=== PATIENT | male | born 1955 | race Caucasian/White ===

== ENCOUNTER 2019-04-27 21:35 | Inpatient (IN) ==
[2019-04-27] MEDS ORDERED: 0.9 % Sodium Chloride 1,000 ML IVC SCH (22:00)
[2019-04-27] MEDS ORDERED: 0.9 % Sodium Chloride 1,000 ML IVC ONE (22:02)
[2019-04-27 22:03] LABS: INR 1.6; Prothrombin Time 18.1 Seconds (9.4-12.1)
[2019-04-27 22:06] LABS: Activated Partial Thrombo Time 35.2 Seconds (26.0-36.0)
[2019-04-27 22:21] LABS: Alanine Aminotransferase 38 Units/L (7-52); Albumin 2.9 g/dL (3.5-5.7); Albumin/Globulin Ratio 0.7 (1.1-2.2); Alkaline Phosphatase 146 Units/L (34-104); Aspartate Amino Transferase 102 Units/L (13-39); BUN/Creatinine Ratio 10 (6-26); Bilirubin,Total 2.3 mg/dL (0.3-1.0); Blood Urea Nitrogen 5 mg/dL (8-23); Calcium 8.3 mg/dL (8.6-10.3); Carbon Dioxide 27 mEq/L (23-29); Chloride 96 mEq/L (98-107); Globulin 4.2 g/dL (2.4-3.5); Glucose 91 mg/dL (70-105); Osmolality,Calculated 269 (280-300); Potassium 4.1 mEq/L (3.5-5.1); Sodium 131 mEq/L (136-145); Total Protein 7.1 g/dL (6.4-8.9); eGFR For African Americans > 60 (> 60); eGFR For Non-African Americans > 60 (> 60)
[2019-04-27 22:29] LABS: Basophils % 1.1 %; Eosinophils # 0.1 K/mcL (0.0-0.6); Eosinophils % 1.8 %; Hematocrit 37.2 % (37.5-50.1); Hemoglobin 13.4 g/dL (12.9-16.9); Immature Granulocytes % 0.4 % (0-4); Lymphocytes # 1.1 K/mcL (0.6-4.6); Lymphocytes % 37.9 %; Mean Corpuscular Hemoglobin 35.2 pg (28.0-33.3); Mean Corpuscular Volume 97.6 fL (83.0-100.0); Monocytes # 0.3 K/mcL (0.0-1.3); Monocytes % 12.3 %; Neutrophils # 1.3 K/mcL (1.6-8.9); Red Blood Count 3.81 M/mcL (4.19-5.50); Segmented Neutrophils % 46.5 %; White Blood Count 2.8 K/mcL (4.3-11.1)
[2019-04-27 22:30] LABS: Platelet Count 77 K/mcL (140-400)
[2019-04-27] MEDS ORDERED: *HR* LORazepam 2 MG/ML VIAL IVP ONE (22:59)
[2019-04-27 23:04] LABS: Bilirubin,Urine Negative (Negative); Blood,Urine Negative (Negative); Clarity,Urine Cloudy (Clear); Color,Urine Yellow (Yellow); Glucose,Urine (UA) Normal (Normal); Ketones,Urine Negative (Negative); Leukocyte Esterase,Urine Negative (Negative); Nitrite,Urine Negative (Negative); PH,Urine 6.5 pH Units (5.0-8.0); Protein,Urine Negative (Neg-Trace); Specific Gravity,Urine 1.014 (1.010-1.025); Urobilinogen,Urine Normal (Normal)
[2019-04-27 23:07] LABS: Bacteria,Urine None Seen per hpf (None-Few); Hyaline Casts,Urine None Seen per lpf (None-Few); RBC,Urine 0-3 per hpf (0-3); Squamous Epithelial Cell,Urine Moderate per lpf (None-Few); WBC,Urine 0-3 per hpf (0-3)
[2019-04-28] MEDS ORDERED: Naloxone 0.4 MG/ML INJ IVP PRN (00:06)
[2019-04-28] MEDS ORDERED: Ondansetron 4 MG/2 ML VIAL IVP PRN (00:06)
[2019-04-28] MEDS ORDERED: Octreotide 400 MCG in 0.9 % Sodium Chloride 100 ML IVC SCH (00:15)
[2019-04-28] MEDS ORDERED: 0.9 % Sodium Chloride 1,000 ML IVC SCH (00:15)
[2019-04-28] MEDS ORDERED: Octreotide 50 MCG/ML INJ IVP ONE (00:18)
[2019-04-28] MEDS ORDERED: *HR* LORazepam 2 MG/ML VIAL IVP PRN ×2 (00:20)
[2019-04-28] MEDS ORDERED: cefTRIAXone 1,000 MG in Water for inj. (sterile) 10 ML IVPB SCH (01:00)
[2019-04-28] MEDS ORDERED: Pantoprazole 40 MG VIAL IVP SCH ×2 (01:45→06:00)
[2019-04-28 02:04] LABS: Eosinophils % 0.7 %; Hematocrit 36.2 % (37.5-50.1); Hemoglobin 13.2 g/dL (12.9-16.9); Immature Granulocytes % 0.2 % (0-4); Immature Platelets 3.2 % (1.1-6.1); Lymphocytes # 1.5 K/mcL (0.6-4.6); Lymphocytes % 36.9 %; Mean Corpuscular HGB Conc 36.5 g/dL (31.6-35.5); Mean Corpuscular Hemoglobin 35.1 pg (28.0-33.3); Mean Corpuscular Volume 96.3 fL (83.0-100.0); Mean Platelet Volume 9.9 fL (9.4-12.4); Monocytes # 0.6 K/mcL (0.0-1.3); Monocytes % 13.7 %; Red Blood Count 3.76 M/mcL (4.19-5.50); Segmented Neutrophils % 47.5 %; White Blood Count 4.1 K/mcL (4.3-11.1)
[2019-04-28 02:05] LABS: Platelet Count 77 K/mcL (140-400)
[2019-04-28 02:18] LABS: Alanine Aminotransferase 36 Units/L (7-52); Albumin 2.7 g/dL (3.5-5.7); Albumin/Globulin Ratio 0.7 (1.1-2.2); Alkaline Phosphatase 133 Units/L (34-104); Aspartate Amino Transferase 93 Units/L (13-39); BUN/Creatinine Ratio 16 (6-26); Bilirubin,Direct 0.8 mg/dL (0.0-0.2); Bilirubin,Indirect 1.4 mg/dL (0.0-1.0); Bilirubin,Total 2.2 mg/dL (0.3-1.0); Blood Urea Nitrogen 8 mg/dL (8-23); Carbon Dioxide 24 mEq/L (23-29); Chloride 100 mEq/L (98-107); Globulin 4.1 g/dL (2.4-3.5); Glucose 97 mg/dL (70-105); Osmolality,Calculated 274 (280-300); Potassium 4.2 mEq/L (3.5-5.1); Sodium 133 mEq/L (136-145); Total Protein 6.8 g/dL (6.4-8.9); eGFR For African Americans > 60 (> 60); eGFR For Non-African Americans > 60 (> 60)
[2019-04-28 05:28] VITALS: BP 115/71
== END 2019-04-28 06:00 | disposition critical access hospital (66) | DRG 432 ==
LOC: 2ANU 21:35 → EMEROOARM 21:35 → 2ANU 04-28 00:40
PROVIDERS: ADMIT Internal Medicine; ATTEND Internal Medicine

== ENCOUNTER 2019-08-31 18:47 | Inpatient (IN) ==
[2019-08-31 19:21] LABS: Basophils # 0.1 K/mcL (0.0-0.2); Basophils % 1.2 %; Eosinophils % 0.2 %; Hematocrit 30.3 % (37.5-50.1); Immature Granulocytes % 0.2 % (0-4); Lymphocytes # 1.1 K/mcL (0.6-4.6); Lymphocytes % 26.7 %; Mean Corpuscular Hemoglobin 29.9 pg (28.0-33.3); Mean Corpuscular Volume 90.7 fL (83.0-100.0); Mean Platelet Volume 8.5 fL (9.4-12.4); Monocytes # 0.6 K/mcL (0.0-1.3); Monocytes % 14.2 %; Neutrophils # 2.3 K/mcL (1.6-8.9); Platelet Count 117 K/mcL (140-400); Red Blood Count 3.34 M/mcL (4.19-5.50); Red Cell Distribution Width 18.2 % (11.5-14.5); Segmented Neutrophils % 57.5 %
[2019-08-31 19:24] LABS: INR 1.8; Prothrombin Time 20.1 Seconds (9.4-12.1)
[2019-08-31 19:42] LABS: Alanine Aminotransferase 21 Units/L (7-52); Albumin 2.2 g/dL (3.5-5.7); Albumin/Globulin Ratio 0.5 (1.1-2.2); Alkaline Phosphatase 127 Units/L (34-104); Aspartate Amino Transferase 58 Units/L (13-39); BUN/Creatinine Ratio 7 (6-26); Bilirubin,Direct 0.5 mg/dL (0.0-0.2); Bilirubin,Indirect 1.3 mg/dL (0.0-1.0); Bilirubin,Total 1.8 mg/dL (0.3-1.0); Blood Urea Nitrogen 4 mg/dL (8-23); Calcium 8.5 mg/dL (8.6-10.3); Carbon Dioxide 27 mEq/L (23-29); Chloride 95 mEq/L (98-107); Globulin 4.7 g/dL (2.4-3.5); Glucose 99 mg/dL (70-105); Osmolality,Calculated 263 (280-300); Potassium 3.4 mEq/L (3.5-5.1); Sodium 128 mEq/L (136-145); Total Protein 6.9 g/dL (6.4-8.9); Troponin I < 0.03 ng/mL (< 0.04); eGFR For African Americans > 60 (> 60); eGFR For Non-African Americans > 60 (> 60)
[2019-08-31] MEDS ORDERED: Furosemide 40 MG/4 ML VIAL IVP ONE (21:50)
[2019-08-31] MEDS ORDERED: Acetaminophen 325 MG TABLET PO PRN (22:58)
[2019-08-31] MEDS ORDERED: *HR* OxyCODONE Immed Rel 5 MG TABLET PO PRN (22:58)
[2019-08-31] MEDS ORDERED: Naloxone 0.4 MG/ML INJ IVP PRN (22:58)
[2019-08-31] MEDS ORDERED: *HR* LORazepam 2 MG/ML VIAL IVP PRN ×3 (23:05)
[2019-09-01] MEDS: Cefepime HCl 1,000 MG in Water for inj. (sterile) 10 ML IVP SCH ×3 (00:19→18:07)
[2019-09-01 02:43] LABS: Eosinophils # 0.2 K/mcL (0.0-0.6); Hematocrit 30.2 % (37.5-50.1); Immature Granulocytes % 0.3 % (0-4); Lymphocytes # 0.9 K/mcL (0.6-4.6); Lymphocytes % 24.4 %; Mean Corpuscular HGB Conc 33.1 g/dL (31.6-35.5); Mean Corpuscular Hemoglobin 29.9 pg (28.0-33.3); Mean Corpuscular Volume 90.4 fL (83.0-100.0); Mean Platelet Volume 8.3 fL (9.4-12.4); Monocytes # 0.5 K/mcL (0.0-1.3); Monocytes % 12.2 %; Neutrophils # 2.2 K/mcL (1.6-8.9); Platelet Count 115 K/mcL (140-400); Red Blood Count 3.34 M/mcL (4.19-5.50); Segmented Neutrophils % 56.1 %; White Blood Count 3.9 K/mcL (4.3-11.1)
[2019-09-01 02:51] LABS: INR 1.9; Prothrombin Time 21.7 Seconds (9.4-12.1)
[2019-09-01 03:06] LABS: BUN/Creatinine Ratio 10 (6-26); Blood Urea Nitrogen 5 mg/dL (8-23); Calcium 8.2 mg/dL (8.6-10.3); Carbon Dioxide 28 mEq/L (23-29); Chloride 96 mEq/L (98-107); Chol/HDL Ratio 6.2 (0-4.9); Cholesterol 68 mg/dL (< 200); Glucose 103 mg/dL (70-105); HDL Cholesterol 11 mg/dL (40-59); LDL Cholesterol,Calculated 47 mg/dL (0-99); Magnesium 1.1 mg/dL (1.6-2.6); Osmolality,Calculated 266 (280-300); Potassium 3.5 mEq/L (3.5-5.1); Sodium 129 mEq/L (136-145); Triglycerides 51 mg/dL (< 150); eGFR For African Americans > 60 (> 60); eGFR For Non-African Americans > 60 (> 60)
[2019-09-01] MEDS ORDERED: *HR* Heparin 5,000 UNIT/ML VIAL SQ SCH (06:00)
[2019-09-01] MEDS: *HR* Heparin 5,000 UNIT/ML VIAL SQ SCH ×2 (06:07→18:08)
[2019-09-01] MEDS ORDERED: Albumin 25% 25gram/100mL 25 GM/100 ML IV.SOLN IVPB ONE (08:00)
[2019-09-01] MEDS: Folic Acid 1 MG TABLET PO SCH (10:23)
[2019-09-01] MEDS: Vitamin B Complex/Vit C/Vit E 1 EACH TABLET PO SCH (10:23)
[2019-09-01] MEDS: Thiamine (B-1) 100 MG TABLET PO SCH (10:23)
[2019-09-01] MEDS: Furosemide 40 MG/4 ML VIAL IVP SCH ×2 (10:27→21:48)
[2019-09-01] MEDS: Thiamine (B-1) 100 MG, Folic Acid 1 MG, MVI, adult with vitamin K 10 ML in 0.9 % Sodi... IVPB SCH (18:08)
[2019-09-02] MEDS: Cefepime HCl 1,000 MG in Water for inj. (sterile) 10 ML IVP SCH ×2 (00:22→08:11)
[2019-09-02] MEDS: *HR* Heparin 5,000 UNIT/ML VIAL SQ SCH ×2 (05:17→18:16)
[2019-09-02 06:17] LABS: Immature Granulocytes % 0.3 % (0-4); Mean Corpuscular Volume 88.7 fL (83.0-100.0); Red Cell Distribution Width 17.9 % (11.5-14.5)
[2019-09-02 06:19] LABS: Basophils # 0.1 K/mcL (0.0-0.2); Basophils % 1.8 %; Eosinophils # 0.3 K/mcL (0.0-0.6); Eosinophils % 9.5 %; Hematocrit 25.9 % (37.5-50.1); Hemoglobin 8.8 g/dL (12.9-16.9); Immature Platelets 1.7 % (1.1-6.1); Lymphocytes # 1.3 K/mcL (0.6-4.6); Lymphocytes % 37.4 %; Mean Corpuscular Hemoglobin 30.1 pg (28.0-33.3); Mean Platelet Volume 8.8 fL (9.4-12.4); Monocytes # 0.4 K/mcL (0.0-1.3); Monocytes % 11.9 %; Neutrophils # 1.3 K/mcL (1.6-8.9); Platelet Count 101 K/mcL (140-400); Red Blood Count 2.92 M/mcL (4.19-5.50); Segmented Neutrophils % 39.1 %; White Blood Count 3.4 K/mcL (4.3-11.1)
[2019-09-02 06:52] LABS: Alanine Aminotransferase 15 Units/L (7-52); Albumin/Globulin Ratio 0.6 (1.1-2.2); Alkaline Phosphatase 91 Units/L (34-104); Aspartate Amino Transferase 38 Units/L (13-39); BUN/Creatinine Ratio 8 (6-26); Blood Urea Nitrogen 4 mg/dL (8-23); Calcium 7.8 mg/dL (8.6-10.3); Carbon Dioxide 32 mEq/L (23-29); Chloride 95 mEq/L (98-107); Globulin 3.6 g/dL (2.4-3.5); Glucose 97 mg/dL (70-105); Osmolality,Calculated 269 (280-300); Potassium 2.6 mEq/L (3.5-5.1); Sodium 131 mEq/L (136-145); Total Protein 5.6 g/dL (6.4-8.9); eGFR For African Americans > 60 (> 60); eGFR For Non-African Americans > 60 (> 60)
[2019-09-02 06:57] LABS: Anisocytosis 1+ (Not Present); Platelet Estimate Slight Decrease (Normal); Reactive Lymphocytes Present (Not Present)
[2019-09-02] MEDS: Potassium Chloride Elixir 20 MEQ/15 ML UDC PO SCH ×2 (08:09→20:15)
[2019-09-02] MEDS: Thiamine (B-1) 100 MG TABLET PO SCH (08:10)
[2019-09-02] MEDS: Folic Acid 1 MG TABLET PO SCH (08:10)
[2019-09-02] MEDS: Furosemide 40 MG/4 ML VIAL IVP SCH ×2 (08:10→20:15)
[2019-09-02] MEDS: Vitamin B Complex/Vit C/Vit E 1 EACH TABLET PO SCH (08:10)
[2019-09-02] MEDS: Albumin 25% 25gram/100mL 25 GM/100 ML IV.SOLN IVPB SCH ×2 (16:16→23:53)
[2019-09-02] MEDS ORDERED: Perflutren Lipid Microsphere 1.3 ML in 0.9 % Sodium Chloride 8.7 ML IVP ONE (18:12)
[2019-09-02] MEDS: Thiamine (B-1) 100 MG, Folic Acid 1 MG, MVI, adult with vitamin K 10 ML in 0.9 % Sodi... IVPB SCH (18:18)
[2019-09-02] MEDS: Cefepime HCl 2,000 MG in 0.9 % Sodium Chloride Mini Bag 100 ML IVPB SCH (20:16)
[2019-09-03] MEDS: *HR* Heparin 5,000 UNIT/ML VIAL SQ SCH (05:41)
[2019-09-03 06:04] LABS: Basophils % 1.3 %; Eosinophils # 0.3 K/mcL (0.0-0.6); Eosinophils % 10.9 %; Hematocrit 23.3 % (37.5-50.1); Immature Granulocytes % 0.3 % (0-4); Lymphocytes # 1.2 K/mcL (0.6-4.6); Lymphocytes % 39.4 %; Mean Corpuscular HGB Conc 34.3 g/dL (31.6-35.5); Mean Corpuscular Hemoglobin 30.4 pg (28.0-33.3); Mean Corpuscular Volume 88.6 fL (83.0-100.0); Mean Platelet Volume 9.6 fL (9.4-12.4); Monocytes # 0.4 K/mcL (0.0-1.3); Monocytes % 14.1 %; Neutrophils # 1.1 K/mcL (1.6-8.9); Red Blood Count 2.63 M/mcL (4.19-5.50); Red Cell Distribution Width 17.9 % (11.5-14.5); White Blood Count 3.1 K/mcL (4.3-11.1)
[2019-09-03 06:26] LABS: Hypochromasia Present (Not Present); Platelet Count 83 K/mcL (140-400); Platelet Estimate Slight Decrease (Normal); Target Cells 1+ (Not Present)
[2019-09-03 06:28] LABS: Alanine Aminotransferase 13 Units/L (7-52); Albumin 2.4 g/dL (3.5-5.7); Albumin/Globulin Ratio 0.8 (1.1-2.2); Alkaline Phosphatase 76 Units/L (34-104); Aspartate Amino Transferase 35 Units/L (13-39); BUN/Creatinine Ratio 6 (6-26); Bilirubin,Total 1.8 mg/dL (0.3-1.0); Blood Urea Nitrogen 3 mg/dL (8-23); Calcium 7.9 mg/dL (8.6-10.3); Carbon Dioxide 33 mEq/L (23-29); Chloride 95 mEq/L (98-107); Globulin 3.1 g/dL (2.4-3.5); Glucose 100 mg/dL (70-105); Osmolality,Calculated 271 (280-300); Potassium 2.4 mEq/L (3.5-5.1); Sodium 132 mEq/L (136-145); Total Protein 5.5 g/dL (6.4-8.9); eGFR For African Americans > 60 (> 60); eGFR For Non-African Americans > 60 (> 60)
[2019-09-03] MEDS: Cefepime HCl 2,000 MG in 0.9 % Sodium Chloride Mini Bag 100 ML IVPB SCH (08:02)
[2019-09-03] MEDS: Furosemide 40 MG/4 ML VIAL IVP SCH ×2 (08:04→23:13)
[2019-09-03] MEDS: Folic Acid 1 MG TABLET PO SCH (08:04)
[2019-09-03] MEDS: Vitamin B Complex/Vit C/Vit E 1 EACH TABLET PO SCH (08:04)
[2019-09-03] MEDS: Potassium Chloride Elixir 20 MEQ/15 ML UDC PO SCH ×2 (08:05→23:12)
[2019-09-03] MEDS: Thiamine (B-1) 100 MG TABLET PO SCH (08:07)
[2019-09-03] MEDS ORDERED: Potassium Chloride 40 MEQ, Lidocaine 1% 2 ML in 0.9 % Sodium Chloride 500 ML IVPB ONE (08:13)
[2019-09-03] MEDS: Albumin 25% 25gram/100mL 25 GM/100 ML IV.SOLN IVPB SCH (08:30)
[2019-09-03 09:01] LABS: Magnesium 1.1 mg/dL (1.6-2.6)
[2019-09-03] MEDS ORDERED: Aminoglycoside Consult 1 EACH MC ONE (09:13)
[2019-09-03] MEDS: cephALEXin 500 MG CAPSULE PO SCH ×2 (17:23→23:13)
[2019-09-04 05:04] LABS: Basophils % 1.3 %
[2019-09-04 05:06] LABS: Eosinophils # 0.3 K/mcL (0.0-0.6); Eosinophils % 9.4 %; Hematocrit 24.1 % (37.5-50.1); Immature Platelets 2.1 % (1.1-6.1); Lymphocytes # 1.2 K/mcL (0.6-4.6); Lymphocytes % 38.4 %; Mean Corpuscular HGB Conc 33.2 g/dL (31.6-35.5); Mean Corpuscular Hemoglobin 29.4 pg (28.0-33.3); Mean Corpuscular Volume 88.6 fL (83.0-100.0); Mean Platelet Volume 8.8 fL (9.4-12.4); Monocytes # 0.5 K/mcL (0.0-1.3); Monocytes % 14.7 %; Neutrophils # 1.1 K/mcL (1.6-8.9); Nucleated Red Blood Cells 0.7 /100 WBC (0); Red Blood Count 2.72 M/mcL (4.19-5.50); Red Cell Distribution Width 17.7 % (11.5-14.5); Segmented Neutrophils % 36.2 %; White Blood Count 3.1 K/mcL (4.3-11.1)
[2019-09-04 05:10] LABS: Platelet Count 86 K/mcL (140-400)
[2019-09-04 05:27] LABS: BUN/Creatinine Ratio 6 (6-26); Blood Urea Nitrogen 3 mg/dL (8-23); Calcium 7.9 mg/dL (8.6-10.3); Carbon Dioxide 32 mEq/L (23-29); Chloride 96 mEq/L (98-107); Glucose 90 mg/dL (70-105); Osmolality,Calculated 270 (280-300); Sodium 132 mEq/L (136-145); eGFR For African Americans > 60 (> 60); eGFR For Non-African Americans > 60 (> 60)
[2019-09-04 07:54] LABS: Magnesium 1.4 mg/dL (1.6-2.6)
[2019-09-04] MEDS: cephALEXin 500 MG CAPSULE PO SCH ×4 (08:05→20:59)
[2019-09-04] MEDS: Potassium Chloride Elixir 20 MEQ/15 ML UDC PO SCH ×2 (08:06→21:01)
[2019-09-04] MEDS: Furosemide 40 MG/4 ML VIAL IVP SCH ×2 (08:06→21:00)
[2019-09-04] MEDS: Folic Acid 1 MG TABLET PO SCH (08:06)
[2019-09-04] MEDS: Thiamine (B-1) 100 MG TABLET PO SCH (08:07)
[2019-09-04] MEDS ORDERED: Potassium Chloride Elixir 20 MEQ/15 ML UDC PO ONE (12:00)
[2019-09-04] MEDS: Magnesium Oxide 400 MG TABLET PO SCH (15:20)
[2019-09-05 02:53] LABS: Basophils % 1.3 %; Eosinophils # 0.3 K/mcL (0.0-0.6); Eosinophils % 11.4 %; Hematocrit 24.9 % (37.5-50.1); Hemoglobin 8.4 g/dL (12.9-16.9); Lymphocytes # 1.2 K/mcL (0.6-4.6); Lymphocytes % 38.7 %; Mean Corpuscular HGB Conc 33.7 g/dL (31.6-35.5); Mean Corpuscular Hemoglobin 30.1 pg (28.0-33.3); Mean Corpuscular Volume 89.2 fL (83.0-100.0); Mean Platelet Volume 9.6 fL (9.4-12.4); Monocytes # 0.4 K/mcL (0.0-1.3); Monocytes % 12.1 %; Neutrophils # 1.1 K/mcL (1.6-8.9); Red Blood Count 2.79 M/mcL (4.19-5.50); Red Cell Distribution Width 17.9 % (11.5-14.5); Segmented Neutrophils % 36.5 %
[2019-09-05 02:54] LABS: Platelet Count 76 K/mcL (140-400)
[2019-09-05 03:07] LABS: BUN/Creatinine Ratio 5 (6-26); Blood Urea Nitrogen 3 mg/dL (8-23); Calcium 8.2 mg/dL (8.6-10.3); Carbon Dioxide 34 mEq/L (23-29); Chloride 96 mEq/L (98-107); Glucose 115 mg/dL (70-105); Magnesium 1.6 mg/dL (1.6-2.6); Osmolality,Calculated 271 (280-300); Potassium 3.6 mEq/L (3.5-5.1); Sodium 132 mEq/L (136-145); eGFR For African Americans > 60 (> 60); eGFR For Non-African Americans > 60 (> 60)
[2019-09-05] MEDS: Magnesium Oxide 400 MG TABLET PO SCH (08:17)
[2019-09-05] MEDS: Thiamine (B-1) 100 MG TABLET PO SCH (08:17)
[2019-09-05] MEDS: Folic Acid 1 MG TABLET PO SCH (08:17)
[2019-09-05] MEDS: cephALEXin 500 MG CAPSULE PO SCH ×4 (08:17→20:07)
[2019-09-05] MEDS: Furosemide 40 MG/4 ML VIAL IVP SCH ×2 (08:18→20:07)
[2019-09-05] MEDS: Potassium Chloride Elixir 20 MEQ/15 ML UDC PO SCH (08:26)
[2019-09-05] MEDS: Spironolactone 25 MG TABLET PO SCH (08:45)
[2019-09-06 02:57] LABS: Hemoglobin 8.8 g/dL (12.9-16.9)
[2019-09-06 03:00] LABS: Eosinophils # 0.5 K/mcL (0.0-0.6); Hematocrit 26.6 % (37.5-50.1); Immature Granulocytes % 0.3 % (0-4); Immature Platelets 2.7 % (1.1-6.1); Lymphocytes # 1.5 K/mcL (0.6-4.6); Lymphocytes % 38.1 %; Mean Corpuscular HGB Conc 33.1 g/dL (31.6-35.5); Mean Corpuscular Hemoglobin 29.6 pg (28.0-33.3); Mean Corpuscular Volume 89.6 fL (83.0-100.0); Mean Platelet Volume 8.9 fL (9.4-12.4); Monocytes # 0.5 K/mcL (0.0-1.3); Monocytes % 12.8 %; Neutrophils # 1.4 K/mcL (1.6-8.9); Red Blood Count 2.97 M/mcL (4.19-5.50); Red Cell Distribution Width 17.8 % (11.5-14.5); Segmented Neutrophils % 35.8 %
[2019-09-06 03:04] LABS: Platelet Count 79 K/mcL (140-400)
[2019-09-06 03:17] LABS: BUN/Creatinine Ratio 5 (6-26); Blood Urea Nitrogen 3 mg/dL (8-23); Calcium 8.5 mg/dL (8.6-10.3); Carbon Dioxide 35 mEq/L (23-29); Chloride 95 mEq/L (98-107); Glucose 94 mg/dL (70-105); Osmolality,Calculated 268 (280-300); Potassium 3.4 mEq/L (3.5-5.1); Sodium 131 mEq/L (136-145); eGFR For African Americans > 60 (> 60); eGFR For Non-African Americans > 60 (> 60)
[2019-09-06 03:38] LABS: Platelet Estimate Decreased (Normal)
[2019-09-06 07:26] VITALS: BP 100/59
[2019-09-06] MEDS: cephALEXin 500 MG CAPSULE PO SCH (09:22)
[2019-09-06] MEDS: Spironolactone 25 MG TABLET PO SCH (09:22)
[2019-09-06] MEDS: Thiamine (B-1) 100 MG TABLET PO SCH (09:22)
[2019-09-06] MEDS: Folic Acid 1 MG TABLET PO SCH (09:22)
[2019-09-06] MEDS: Magnesium Oxide 400 MG TABLET PO SCH (09:22)
[2019-09-06] MEDS: Furosemide 40 MG/4 ML VIAL IVP SCH (09:22)
== END 2019-09-06 11:33 | disposition home or self-care (01) | DRG 433 ==
LOC: 3ANU 18:47 → EMEROOARM 18:47 → SUATTDRO 22:00 → 3ANU 22:03 → SUATTDRO 09-02 16:12
PROVIDERS: ADMIT Internal Medicine; ATTEND Internal Medicine

== ENCOUNTER 2019-10-22 19:49 | Observation (INO) ==
[2019-10-22 23:30] LABS: Alanine Aminotransferase 12 Units/L (7-52); Albumin 1.7 g/dL (3.5-5.7); Albumin/Globulin Ratio 0.4 (1.1-2.2); Alkaline Phosphatase 67 Units/L (34-104); Aspartate Amino Transferase 40 Units/L (13-39); BUN/Creatinine Ratio 5 (6-26); Bilirubin,Direct 1.1 mg/dL (0.0-0.2); Bilirubin,Indirect 1.7 mg/dL (0.0-1.0); Bilirubin,Total 2.8 mg/dL (0.3-1.0); Blood Urea Nitrogen 2 mg/dL (8-23); Calcium 7.2 mg/dL (8.6-10.3); Carbon Dioxide 31 mEq/L (23-29); Chloride 85 mEq/L (98-107); Globulin 4.2 g/dL (2.4-3.5); Glucose 102 mg/dL (70-105); Lipase 5 Units/L (11-82); Osmolality,Calculated 246 (280-300); Potassium 2.5 mEq/L (3.5-5.1); Sodium 120 mEq/L (136-145); Total Protein 5.9 g/dL (6.4-8.9); eGFR For African Americans > 60 (> 60); eGFR For Non-African Americans > 60 (> 60)
[2019-10-22] MEDS ORDERED: Potassium Chloride 40 MEQ, Lidocaine 1% 2 ML in 0.9 % Sodium Chloride 500 ML IVPB ONE (23:30)
[2019-10-23 00:19] LABS: Basophils % 0.8 %; Eosinophils # 0.1 K/mcL (0.0-0.6); Eosinophils % 1.6 %; Hematocrit 28.8 % (37.5-50.1); Immature Granulocytes % 0.5 % (0-4); Lymphocytes # 0.9 K/mcL (0.6-4.6); Lymphocytes % 23.3 %; Mean Corpuscular HGB Conc 34.7 g/dL (31.6-35.5); Mean Corpuscular Hemoglobin 30.2 pg (28.0-33.3); Mean Platelet Volume 8.8 fL (9.4-12.4); Monocytes # 0.4 K/mcL (0.0-1.3); Monocytes % 10.6 %; Neutrophils # 2.3 K/mcL (1.6-8.9); Platelet Count 144 K/mcL (140-400); Red Blood Count 3.31 M/mcL (4.19-5.50); Red Cell Distribution Width 17.8 % (11.5-14.5); Segmented Neutrophils % 63.2 %; White Blood Count 3.7 K/mcL (4.3-11.1)
[2019-10-23 00:27] LABS: Ethanol < 10 mg/dL (Less than 10)
[2019-10-23 00:59] LABS: Platelet Estimate Normal (Normal); Reactive Lymphocytes Present (Not Present)
[2019-10-23] MEDS ORDERED: Naloxone 0.4 MG/ML INJ IVP PRN (03:04)
[2019-10-23 03:13] LABS: INR 2.3; Prothrombin Time 25.6 Seconds (9.4-12.1)
[2019-10-23] MEDS ORDERED: 0.9 % Sodium Chloride 1,000 ML IVC SCH (03:15)
[2019-10-23 04:36] LABS: Bilirubin,Urine Small (Negative); Blood,Urine Negative (Negative); Clarity,Urine Cloudy (Clear); Color,Urine Dark Yellow (Yellow); Glucose,Urine (UA) Normal (Normal); Ketones,Urine Negative (Negative); Leukocyte Esterase,Urine Negative (Negative); Nitrite,Urine Negative (Negative); Protein,Urine Negative (Neg-Trace); Specific Gravity,Urine 1.015 (1.010-1.025); Urobilinogen,Urine Normal (Normal)
[2019-10-23 04:39] LABS: Hyaline Casts,Urine Moderate per lpf (None-Few); RBC,Urine 0-3 per hpf (0-3); Squamous Epithelial Cell,Urine Many per lpf (None-Few)
[2019-10-23 04:41] LABS: Hematocrit 28.5 % (37.5-50.1); Hemoglobin 9.8 g/dL (12.9-16.9); Mean Corpuscular HGB Conc 34.4 g/dL (31.6-35.5); Mean Corpuscular Hemoglobin 30.1 pg (28.0-33.3); Mean Corpuscular Volume 87.4 fL (83.0-100.0); Mean Platelet Volume 9.4 fL (9.4-12.4); Platelet Count 155 K/mcL (140-400); Red Blood Count 3.26 M/mcL (4.19-5.50); Red Cell Distribution Width 17.6 % (11.5-14.5); White Blood Count 3.9 K/mcL (4.3-11.1)
[2019-10-23 04:51] LABS: Bacteria,Urine Few per hpf (None-Few)
[2019-10-23 04:58] LABS: BUN/Creatinine Ratio 9 (6-26); Blood Urea Nitrogen 3 mg/dL (8-23); Calcium 7.3 mg/dL (8.6-10.3); Carbon Dioxide 31 mEq/L (23-29); Chloride 86 mEq/L (98-107); Glucose 91 mg/dL (70-105); Osmolality,Calculated 248 (280-300); Potassium 3.1 mEq/L (3.5-5.1); Sodium 121 mEq/L (136-145); eGFR For African Americans > 60 (> 60); eGFR For Non-African Americans > 60 (> 60)
[2019-10-23] MEDS ORDERED: *HR* Promethazine 25 MG/ML VIAL IVP PRN (06:09)
[2019-10-23] MEDS ORDERED: *HR* LORazepam 2 MG/ML VIAL IVP PRN ×3 (06:09)
[2019-10-23] MEDS ORDERED: *HR* Heparin 5,000 UNIT/ML VIAL SQ SCH (06:15)
[2019-10-23 08:40] LABS: BUN/Creatinine Ratio 8 (6-26); Blood Urea Nitrogen 3 mg/dL (8-23); Calcium 7.4 mg/dL (8.6-10.3); Carbon Dioxide 29 mEq/L (23-29); Chloride 88 mEq/L (98-107); Glucose 90 mg/dL (70-105); Osmolality,Calculated 252 (280-300); Potassium 3.3 mEq/L (3.5-5.1); Sodium 123 mEq/L (136-145); eGFR For African Americans > 60 (> 60); eGFR For Non-African Americans > 60 (> 60)
[2019-10-23] MEDS: Vitamin B Complex/Vit C/Vit E 1 EACH TABLET PO SCH (08:54)
[2019-10-23] MEDS: Potassium Chloride Elixir 20 MEQ/15 ML UDC PO SCH ×3 (08:55→11:10)
[2019-10-23] MEDS ORDERED: Folic Acid 1 MG TABLET PO SCH (09:00)
[2019-10-23] MEDS ORDERED: Thiamine (B-1) 100 MG TABLET PO SCH (09:00)
[2019-10-23 12:17] LABS: BUN/Creatinine Ratio 7 (6-26); Blood Urea Nitrogen 3 mg/dL (8-23); Calcium 7.3 mg/dL (8.6-10.3); Carbon Dioxide 27 mEq/L (23-29); Chloride 89 mEq/L (98-107); Glucose 120 mg/dL (70-105); Osmolality,Calculated 254 (280-300); Potassium 3.4 mEq/L (3.5-5.1); Sodium 123 mEq/L (136-145); eGFR For African Americans > 60 (> 60); eGFR For Non-African Americans > 60 (> 60)
[2019-10-23 16:01] LABS: Sodium, Urine 14.7 mEq/L
[2019-10-23 16:27] LABS: BUN/Creatinine Ratio 8 (6-26); Blood Urea Nitrogen 3 mg/dL (8-23); Calcium 7.3 mg/dL (8.6-10.3); Carbon Dioxide 28 mEq/L (23-29); Chloride 91 mEq/L (98-107); Glucose 116 mg/dL (70-105); Osmolality,Calculated 254 (280-300); Potassium 3.7 mEq/L (3.5-5.1); Sodium 123 mEq/L (136-145); eGFR For African Americans > 60 (> 60); eGFR For Non-African Americans > 60 (> 60)
[2019-10-23 20:13] LABS: BUN/Creatinine Ratio 10 (6-26); Blood Urea Nitrogen 4 mg/dL (8-23); Calcium 7.4 mg/dL (8.6-10.3); Carbon Dioxide 28 mEq/L (23-29); Chloride 91 mEq/L (98-107); Glucose 118 mg/dL (70-105); Osmolality,Calculated 254 (280-300); Potassium 3.7 mEq/L (3.5-5.1); Sodium 123 mEq/L (136-145); eGFR For African Americans > 60 (> 60); eGFR For Non-African Americans > 60 (> 60)
[2019-10-23] MEDS ORDERED: Mirtazapine 15 MG TABLET PO SCH (21:00)
[2019-10-24 00:21] LABS: Basophils % 1.1 %; Eosinophils # 0.2 K/mcL (0.0-0.6); Eosinophils % 5.2 %; Hematocrit 26.3 % (37.5-50.1); Hemoglobin 9.1 g/dL (12.9-16.9); Immature Granulocytes % 0.3 % (0-4); Lymphocytes # 1.1 K/mcL (0.6-4.6); Lymphocytes % 32.4 %; Mean Corpuscular HGB Conc 34.6 g/dL (31.6-35.5); Mean Corpuscular Hemoglobin 30.6 pg (28.0-33.3); Mean Corpuscular Volume 88.6 fL (83.0-100.0); Mean Platelet Volume 8.5 fL (9.4-12.4); Monocytes # 0.4 K/mcL (0.0-1.3); Neutrophils # 1.7 K/mcL (1.6-8.9); Platelet Count 123 K/mcL (140-400); Red Blood Count 2.97 M/mcL (4.19-5.50); Red Cell Distribution Width 18.2 % (11.5-14.5); White Blood Count 3.5 K/mcL (4.3-11.1)
[2019-10-24 00:37] LABS: Alanine Aminotransferase 13 Units/L (7-52); Albumin 1.7 g/dL (3.5-5.7); Albumin/Globulin Ratio 0.4 (1.1-2.2); Alkaline Phosphatase 69 Units/L (34-104); Aspartate Amino Transferase 45 Units/L (13-39); BUN/Creatinine Ratio 9 (6-26); Bilirubin,Total 2.2 mg/dL (0.3-1.0); Blood Urea Nitrogen 3 mg/dL (8-23); Calcium 7.4 mg/dL (8.6-10.3); Carbon Dioxide 28 mEq/L (23-29); Chloride 93 mEq/L (98-107); Globulin 4.3 g/dL (2.4-3.5); Glucose 92 mg/dL (70-105); Magnesium 1.3 mg/dL (1.6-2.6); Osmolality,Calculated 258 (280-300); Potassium 3.8 mEq/L (3.5-5.1); Sodium 126 mEq/L (136-145); eGFR For African Americans > 60 (> 60); eGFR For Non-African Americans > 60 (> 60)
[2019-10-24 00:43] LABS: Anisocytosis 1+ (Not Present); Platelet Estimate Slight Decrease (Normal)
[2019-10-24] MEDS: Vitamin B Complex/Vit C/Vit E 1 EACH TABLET PO SCH (08:19)
[2019-10-24] MEDS ORDERED: Thiamine (B-1) 100 MG TABLET PO SCH (09:00)
[2019-10-24] MEDS ORDERED: Folic Acid 1 MG TABLET PO SCH (09:00)
[2019-10-24] MEDS ORDERED: Potassium Chloride Elixir 20 MEQ/15 ML UDC PO SCH (09:00)
[2019-10-24 09:56] LABS: INR 2.1; Prothrombin Time 24.2 Seconds (9.4-12.1)
[2019-10-24 11:04] VITALS: BP 131/66
== END 2019-10-24 11:58 | disposition home or self-care (01) ==
LOC: 2NNU 19:49 → EMEROOARM 19:49 → SUATTDRO 10-23 01:40 → 2NNU 10-23 02:42
PROVIDERS: ADMIT Internal Medicine; ATTEND Internal Medicine

== ENCOUNTER 2019-11-24 18:08 | Observation (INO) ==
[2019-11-24] MEDS ORDERED: Potassium Chloride 40 MEQ, Lidocaine 1% 2 ML in 0.9 % Sodium Chloride 500 ML IVPB ONE (18:35)
[2019-11-24] MEDS ORDERED: Potassium Effervescent 25 MEQ TABLET.EFF PO ONE (18:35)
[2019-11-24 19:37] LABS: Basophils % 0.6 %; Eosinophils % 0.6 %; Hematocrit 29.8 % (37.5-50.1); Hemoglobin 10.4 g/dL (12.9-16.9); Immature Granulocytes % 0.3 % (0-4); Lymphocytes # 0.9 K/mcL (0.6-4.6); Lymphocytes % 26.5 %; Mean Corpuscular HGB Conc 34.9 g/dL (31.6-35.5); Mean Corpuscular Volume 91.7 fL (83.0-100.0); Mean Platelet Volume 7.8 fL (9.4-12.4); Monocytes # 0.5 K/mcL (0.0-1.3); Monocytes % 15.6 %; Platelet Count 153 K/mcL (140-400); Red Blood Count 3.25 M/mcL (4.19-5.50); Red Cell Distribution Width 17.8 % (11.5-14.5); Segmented Neutrophils % 56.4 %; White Blood Count 3.5 K/mcL (4.3-11.1)
[2019-11-24 19:46] LABS: Sodium, Urine 21.7 mEq/L
[2019-11-24 20:01] LABS: Bacteria,Urine Few per hpf (None-Few); Bilirubin,Urine Negative (Negative); Blood,Urine Negative (Negative); Clarity,Urine Turbid (Clear); Color,Urine Yellow (Yellow); Glucose,Urine (UA) Normal (Normal); Hyaline Casts,Urine Many per lpf (None Seen); Ketones,Urine Negative (Negative); Leukocyte Esterase,Urine Negative (Negative); Mucus,Urine Few per lpf (None-Few); Nitrite,Urine Negative (Negative); Protein,Urine Negative (Neg-Trace); Specific Gravity,Urine 1.013 (1.010-1.025); Squamous Epithelial Cell,Urine Few per hpf (None-Few); WBC,Urine 0-3 per hpf (0-3)
[2019-11-24 20:04] LABS: Platelet Estimate Normal (Normal); Polychromasia 1+ (Not Present)
[2019-11-24 20:05] LABS: Anisocytosis 1+ (Not Present)
[2019-11-24 20:06] LABS: Alanine Aminotransferase 12 Units/L (7-52); Albumin 1.7 g/dL (3.5-5.7); Albumin/Globulin Ratio 0.3 (1.1-2.2); Alkaline Phosphatase 91 Units/L (34-104); Aspartate Amino Transferase 31 Units/L (13-39); BUN/Creatinine Ratio 11 (6-26); Bilirubin,Direct 1.3 mg/dL (0.0-0.2); Bilirubin,Indirect 2.3 mg/dL (0.0-1.0); Bilirubin,Total 3.6 mg/dL (0.3-1.0); Blood Urea Nitrogen 6 mg/dL (8-23); Calcium 7.4 mg/dL (8.6-10.3); Carbon Dioxide 27 mEq/L (23-29); Chloride 86 mEq/L (98-107); Globulin 5.2 g/dL (2.4-3.5); Glucose 113 mg/dL (70-105); Osmolality,Calculated 250 (280-300); Potassium 2.9 mEq/L (3.5-5.1); Sodium 121 mEq/L (136-145); Total Protein 6.9 g/dL (6.4-8.9); eGFR For African Americans > 60 (> 60); eGFR For Non-African Americans > 60 (> 60)
[2019-11-24] MEDS ORDERED: *HR* Promethazine 25 MG/ML VIAL IVP PRN (21:41)
[2019-11-24] MEDS ORDERED: Naloxone 0.4 MG/ML INJ IVP PRN (21:41)
[2019-11-25 01:28] LABS: BUN/Creatinine Ratio 13 (6-26); Blood Urea Nitrogen 6 mg/dL (8-23); Calcium 7.6 mg/dL (8.6-10.3); Carbon Dioxide 25 mEq/L (23-29); Chloride 87 mEq/L (98-107); Glucose 86 mg/dL (70-105); Osmolality,Calculated 247 (280-300); Sodium 120 mEq/L (136-145); eGFR For African Americans > 60 (> 60); eGFR For Non-African Americans > 60 (> 60)
[2019-11-25] MEDS: Lactulose Oral Soln 20 GM/30 ML UDC PO SCH ×3 (01:44→20:57)
[2019-11-25 03:05] LABS: INR 2.3; Prothrombin Time 25.9 Seconds (9.4-12.1)
[2019-11-25 03:20] LABS: Alanine Aminotransferase 11 Units/L (7-52); Albumin 1.6 g/dL (3.5-5.7); Albumin/Globulin Ratio 0.3 (1.1-2.2); Alkaline Phosphatase 88 Units/L (34-104); Aspartate Amino Transferase 30 Units/L (13-39); BUN/Creatinine Ratio 13 (6-26); Bilirubin,Total 3.9 mg/dL (0.3-1.0); Blood Urea Nitrogen 7 mg/dL (8-23); Calcium 7.6 mg/dL (8.6-10.3); Carbon Dioxide 28 mEq/L (23-29); Chloride 87 mEq/L (98-107); Globulin 4.9 g/dL (2.4-3.5); Glucose 88 mg/dL (70-105); Magnesium 1.4 mg/dL (1.6-2.6); Osmolality,Calculated 249 (280-300); Phosphorous 2.8 mg/dL (2.7-4.5); Potassium 3.6 mEq/L (3.5-5.1); Sodium 121 mEq/L (136-145); Total Protein 6.5 g/dL (6.4-8.9); eGFR For African Americans > 60 (> 60); eGFR For Non-African Americans > 60 (> 60)
[2019-11-25] MEDS ORDERED: 0.9 % Sodium Chloride 1,000 ML IVC SCH (06:45)
[2019-11-25 08:40] LABS: BUN/Creatinine Ratio 13 (6-26); Blood Urea Nitrogen 7 mg/dL (8-23); Calcium 7.8 mg/dL (8.6-10.3); Carbon Dioxide 26 mEq/L (23-29); Chloride 88 mEq/L (98-107); Glucose 89 mg/dL (70-105); Osmolality,Calculated 247 (280-300); Potassium 3.7 mEq/L (3.5-5.1); Sodium 120 mEq/L (136-145); eGFR For African Americans > 60 (> 60); eGFR For Non-African Americans > 60 (> 60)
[2019-11-25] MEDS: Albumin 25% 25gram/100mL 25 GM/100 ML IV.SOLN IVPB SCH ×3 (08:49→23:57)
[2019-11-25 11:41] LABS: BUN/Creatinine Ratio 11 (6-26); Blood Urea Nitrogen 7 mg/dL (8-23); Carbon Dioxide 25 mEq/L (23-29); Chloride 88 mEq/L (98-107); Glucose 104 mg/dL (70-105); Osmolality,Calculated 250 (280-300); Potassium 3.7 mEq/L (3.5-5.1); Sodium 121 mEq/L (136-145); eGFR For African Americans > 60 (> 60); eGFR For Non-African Americans > 60 (> 60)
[2019-11-25 15:35] LABS: BUN/Creatinine Ratio 13 (6-26); Blood Urea Nitrogen 7 mg/dL (8-23); Calcium 7.9 mg/dL (8.6-10.3); Carbon Dioxide 27 mEq/L (23-29); Chloride 89 mEq/L (98-107); Glucose 97 mg/dL (70-105); Osmolality,Calculated 252 (280-300); Potassium 3.6 mEq/L (3.5-5.1); Sodium 122 mEq/L (136-145); eGFR For African Americans > 60 (> 60); eGFR For Non-African Americans > 60 (> 60)
[2019-11-25 17:19] LABS: BUN/Creatinine Ratio 13 (6-26); Blood Urea Nitrogen 7 mg/dL (8-23); Calcium 7.9 mg/dL (8.6-10.3); Carbon Dioxide 28 mEq/L (23-29); Chloride 89 mEq/L (98-107); Glucose 103 mg/dL (70-105); Osmolality,Calculated 252 (280-300); Potassium 3.5 mEq/L (3.5-5.1); Sodium 122 mEq/L (136-145); eGFR For African Americans > 60 (> 60); eGFR For Non-African Americans > 60 (> 60)
[2019-11-25] MEDS: *HR* Heparin 5,000 UNIT/ML VIAL SQ SCH (17:37)
[2019-11-25] MEDS: Magnesium Oxide 400 MG TABLET PO SCH (20:57)
[2019-11-25] MEDS ORDERED: Mirtazapine 15 MG TABLET PO SCH (21:00)
[2019-11-25 22:53] LABS: BUN/Creatinine Ratio 15 (6-26); Blood Urea Nitrogen 7 mg/dL (8-23); Calcium 8.1 mg/dL (8.6-10.3); Carbon Dioxide 26 mEq/L (23-29); Chloride 90 mEq/L (98-107); Glucose 93 mg/dL (70-105); Osmolality,Calculated 254 (280-300); Potassium 3.4 mEq/L (3.5-5.1); Sodium 123 mEq/L (136-145); eGFR For African Americans > 60 (> 60); eGFR For Non-African Americans > 60 (> 60)
[2019-11-26] MEDS: *HR* Heparin 5,000 UNIT/ML VIAL SQ SCH (06:38)
[2019-11-26 07:04] LABS: Thyroid Stimulating Hormone 2.925 mcIU/mL (0.340-5.600)
[2019-11-26 07:59] LABS: BUN/Creatinine Ratio 14 (6-26); Blood Urea Nitrogen 7 mg/dL (8-23); Calcium 8.6 mg/dL (8.6-10.3); Carbon Dioxide 28 mEq/L (23-29); Chloride 89 mEq/L (98-107); Glucose 93 mg/dL (70-105); Osmolality,Calculated 258 (280-300); Potassium 3.3 mEq/L (3.5-5.1); Sodium 125 mEq/L (136-145); eGFR For African Americans > 60 (> 60); eGFR For Non-African Americans > 60 (> 60)
[2019-11-26] MEDS: Magnesium Oxide 400 MG TABLET PO SCH (08:03)
[2019-11-26] MEDS: Lactulose Oral Soln 20 GM/30 ML UDC PO SCH (08:03)
[2019-11-26] MEDS ORDERED: Potassium Chloride Elixir 20 MEQ/15 ML UDC PO ONE (08:39)
[2019-11-26] MEDS ORDERED: Potassium Chloride Elixir 20 MEQ/15 ML UDC PO SCH (09:00)
[2019-11-26] MEDS ORDERED: ENTECAVIR 1 MG PO SCH (09:00)
[2019-11-26] MEDS ORDERED: Folic Acid 1 MG TABLET PO SCH (09:00)
[2019-11-26] MEDS ORDERED: Thiamine (B-1) 100 MG TABLET PO SCH (09:00)
[2019-11-26 11:52] VITALS: BP 105/69
[2019-11-26 12:23] LABS: BUN/Creatinine Ratio 16 (6-26); Blood Urea Nitrogen 6 mg/dL (8-23); Calcium 7.7 mg/dL (8.6-10.3); Carbon Dioxide 29 mEq/L (23-29); Chloride 92 mEq/L (98-107); Glucose 85 mg/dL (70-105); Osmolality,Calculated 257 (280-300); Potassium 3.6 mEq/L (3.5-5.1); Sodium 125 mEq/L (136-145); eGFR For African Americans > 60 (> 60); eGFR For Non-African Americans > 60 (> 60)
== END 2019-11-26 14:53 | disposition home or self-care (01) ==
LOC: EMEROOARM 18:08 → 3ANU 18:08 → SUATTDRO 20:44 → 3ANU 21:26
PROVIDERS: ADMIT Student in an Organized Health Care Education/Training Program; ATTEND Internal Medicine

== ENCOUNTER 2019-12-16 15:10 | Inpatient (IN) ==
[2019-12-16 16:37] LABS: Basophils % 1.1 %; Eosinophils # 0.2 K/mcL (0.0-0.6); Eosinophils % 5.7 %; Hematocrit 31.8 % (37.5-50.1); Hemoglobin 10.3 g/dL (12.9-16.9); Lymphocytes # 0.9 K/mcL (0.6-4.6); Lymphocytes % 32.1 %; Mean Corpuscular HGB Conc 32.4 g/dL (31.6-35.5); Mean Corpuscular Hemoglobin 31.7 pg (28.0-33.3); Mean Corpuscular Volume 97.8 fL (83.0-100.0); Mean Platelet Volume 8.2 fL (9.4-12.4); Monocytes # 0.4 K/mcL (0.0-1.3); Monocytes % 13.2 %; Neutrophils # 1.3 K/mcL (1.6-8.9); Platelet Count 162 K/mcL (140-400); Red Blood Count 3.25 M/mcL (4.19-5.50); Red Cell Distribution Width 16.7 % (11.5-14.5); Segmented Neutrophils % 47.9 %; White Blood Count 2.8 K/mcL (4.3-11.1)
[2019-12-16 16:47] LABS: INR 2.2
[2019-12-16 16:51] LABS: Bacteria,Urine Few per hpf (None-Few); Bilirubin,Urine Negative (Negative); Blood,Urine Negative (Negative); Clarity,Urine Clear (Clear); Color,Urine Orange (Yellow); Glucose,Urine (UA) Normal (Normal); Hyaline Casts,Urine Many per lpf (None Seen); Ketones,Urine Negative (Negative); Leukocyte Esterase,Urine Negative (Negative); Mucus,Urine Many per lpf (None-Few); Nitrite,Urine Negative (Negative); Protein,Urine 30 mg/dL (Neg-Trace); RBC,Urine 0-3 per hpf (0-3); Specific Gravity,Urine 1.029 (1.010-1.025); Squamous Epithelial Cell,Urine Few per hpf (None-Few); WBC,Urine 0-3 per hpf (0-3)
[2019-12-16 16:59] LABS: Alanine Aminotransferase 12 Units/L (7-52); Albumin/Globulin Ratio 0.4 (1.1-2.2); Alkaline Phosphatase 74 Units/L (34-104); Aspartate Amino Transferase 33 Units/L (13-39); BUN/Creatinine Ratio 14 (6-26); Bilirubin,Direct 1.1 mg/dL (0.0-0.2); Bilirubin,Indirect 2.1 mg/dL (0.0-1.0); Bilirubin,Total 3.2 mg/dL (0.3-1.0); Blood Urea Nitrogen 6 mg/dL (8-23); Calcium 7.8 mg/dL (8.6-10.3); Carbon Dioxide 28 mEq/L (23-29); Chloride 93 mEq/L (98-107); Globulin 4.9 g/dL (2.4-3.5); Glucose 89 mg/dL (70-105); Lipase 7 Units/L (11-82); Osmolality,Calculated 259 (280-300); Potassium 3.1 mEq/L (3.5-5.1); Sodium 126 mEq/L (136-145); Total Protein 6.9 g/dL (6.4-8.9); Troponin I < 0.03 ng/mL (< 0.04); eGFR For African Americans > 60 (> 60); eGFR For Non-African Americans > 60 (> 60)
[2019-12-16 17:05] LABS: Activated Partial Thrombo Time 41.8 Seconds (26.0-36.0)
[2019-12-16 17:22] LABS: Platelet Estimate Normal (Normal); Reactive Lymphocytes Present (Not Present)
[2019-12-16 18:43] LABS: RBC,Peritoneal Fluid < 2000 RBC/mcL
[2019-12-16] MEDS ORDERED: Potassium Chloride 40 MEQ, Lidocaine 1% 2 ML in 0.9 % Sodium Chloride 500 ML IVPB ONE (19:00)
[2019-12-16] MEDS ORDERED: Calcium Gluconate 1gm/50mL 1 GM/50 ML BAG IVPB PRN (19:00)
[2019-12-16 19:01] LABS: Glucose,Peritoneal Fluid 108 mg/dL (No Ref Range); LDH,Peritoneal Fluid 41 Units/L (No Ref Range); Total Protein,Peritoneal Fluid < 3.0 g/dL
[2019-12-16 19:49] LABS: Basophils,Peritoneal Fluid 0 %; Eosinophils,Peritoneal Fluid 0 %
[2019-12-16 19:52] LABS: Appearance of Peritoneal Fl CLEAR (Clear)
[2019-12-16] MEDS ORDERED: *HR* Promethazine 25 MG/ML VIAL IVP PRN (20:38)
[2019-12-16] MEDS ORDERED: Naloxone 0.4 MG/ML INJ IVP PRN (20:38)
[2019-12-16] MEDS: Thiamine (B-1) 100 MG TABLET PO SCH (21:33)
[2019-12-16] MEDS: Folic Acid 1 MG TABLET PO SCH (21:33)
[2019-12-16] MEDS: Lactulose Oral Soln 20 GM/30 ML UDC PO SCH (21:35)
[2019-12-16] MEDS: Mirtazapine 15 MG TABLET PO SCH (21:35)
[2019-12-16 22:50] LABS: BUN/Creatinine Ratio 13 (6-26); Blood Urea Nitrogen 5 mg/dL (8-23); Calcium 7.4 mg/dL (8.6-10.3); Carbon Dioxide 28 mEq/L (23-29); Chloride 94 mEq/L (98-107); Glucose 79 mg/dL (70-105); Osmolality,Calculated 256 (280-300); Potassium 3.3 mEq/L (3.5-5.1); Sodium 125 mEq/L (136-145); eGFR For African Americans > 60 (> 60); eGFR For Non-African Americans > 60 (> 60)
[2019-12-17 05:25] LABS: Basophils % 1.5 %; Eosinophils # 0.2 K/mcL (0.0-0.6); Eosinophils % 6.4 %; Hematocrit 28.8 % (37.5-50.1); Hemoglobin 9.4 g/dL (12.9-16.9); Immature Granulocytes % 0.4 % (0-4); Lymphocytes # 0.9 K/mcL (0.6-4.6); Lymphocytes % 33.5 %; Mean Corpuscular HGB Conc 32.6 g/dL (31.6-35.5); Mean Corpuscular Hemoglobin 32.4 pg (28.0-33.3); Mean Corpuscular Volume 99.3 fL (83.0-100.0); Mean Platelet Volume 8.3 fL (9.4-12.4); Monocytes # 0.4 K/mcL (0.0-1.3); Monocytes % 13.9 %; Neutrophils # 1.2 K/mcL (1.6-8.9); Platelet Count 144 K/mcL (140-400); Red Cell Distribution Width 16.5 % (11.5-14.5); Segmented Neutrophils % 44.3 %; White Blood Count 2.7 K/mcL (4.3-11.1)
[2019-12-17 05:26] LABS: INR 2.4; Prothrombin Time 27.3 Seconds (9.4-12.1)
[2019-12-17 05:45] LABS: Alanine Aminotransferase 11 Units/L (7-52); Albumin 1.8 g/dL (3.5-5.7); Albumin/Globulin Ratio 0.4 (1.1-2.2); Aspartate Amino Transferase 29 Units/L (13-39); BUN/Creatinine Ratio 12 (6-26); Bilirubin,Total 3.5 mg/dL (0.3-1.0); Blood Urea Nitrogen 5 mg/dL (8-23); Calcium 7.8 mg/dL (8.6-10.3); Carbon Dioxide 26 mEq/L (23-29); Chloride 95 mEq/L (98-107); Chol/HDL Ratio 6.8 (0-4.9); Cholesterol 54 mg/dL (< 200); Globulin 4.5 g/dL (2.4-3.5); Glucose 81 mg/dL (70-105); HDL Cholesterol 8 mg/dL (40-59); LDL Cholesterol,Calculated 38 mg/dL (< 100); Magnesium 1.4 mg/dL (1.6-2.6); Osmolality,Calculated 260 (280-300); Phosphorous 2.9 mg/dL (2.7-4.5); Potassium 3.5 mEq/L (3.5-5.1); Sodium 127 mEq/L (136-145); Total Protein 6.3 g/dL (6.4-8.9); Triglycerides 40 mg/dL (< 150); eGFR For African Americans > 60 (> 60); eGFR For Non-African Americans > 60 (> 60)
[2019-12-17 05:58] LABS: Poikilocytosis 1+ (Not Present)
[2019-12-17 05:59] LABS: Platelet Estimate Normal (Normal)
[2019-12-17 06:00] LABS: Alkaline Phosphatase 79 Units/L (34-104)
[2019-12-17] MEDS: Thiamine (B-1) 100 MG TABLET PO SCH (09:55)
[2019-12-17] MEDS: Folic Acid 1 MG TABLET PO SCH (09:55)
[2019-12-17] MEDS: Potassium Chloride Elixir 20 MEQ/15 ML UDC PO SCH (09:55)
[2019-12-17] MEDS: Lactulose Oral Soln 20 GM/30 ML UDC PO SCH ×2 (09:55→22:40)
[2019-12-17] MEDS: Furosemide 40 MG TABLET PO SCH (15:19)
[2019-12-17] MEDS: MethylPREDNISolone 40 MG/ML VIAL IVP SCH (15:19)
[2019-12-17] MEDS: Mirtazapine 15 MG TABLET PO SCH (22:40)
[2019-12-18 07:05] LABS: Hematocrit 34.3 % (37.5-50.1); Hemoglobin 10.7 g/dL (12.9-16.9); Mean Corpuscular HGB Conc 31.2 g/dL (31.6-35.5); Mean Corpuscular Hemoglobin 31.4 pg (28.0-33.3); Mean Corpuscular Volume 100.6 fL (83.0-100.0); Mean Platelet Volume 8.7 fL (9.4-12.4); Platelet Count 187 K/mcL (140-400); Red Blood Count 3.41 M/mcL (4.19-5.50); White Blood Count 3.3 K/mcL (4.3-11.1)
[2019-12-18 07:25] LABS: BUN/Creatinine Ratio 12 (6-26); Blood Urea Nitrogen 9 mg/dL (8-23); Calcium 7.9 mg/dL (8.6-10.3); Carbon Dioxide 22 mEq/L (23-29); Chloride 93 mEq/L (98-107); Glucose 106 mg/dL (70-105); Osmolality,Calculated 265 (280-300); Potassium 3.8 mEq/L (3.5-5.1); Sodium 128 mEq/L (136-145); eGFR For African Americans > 60 (> 60); eGFR For Non-African Americans > 60 (> 60)
[2019-12-18] MEDS: Folic Acid 1 MG TABLET PO SCH (09:59)
[2019-12-18] MEDS: Furosemide 40 MG TABLET PO SCH ×2 (10:00→21:56)
[2019-12-18] MEDS: Lactulose Oral Soln 20 GM/30 ML UDC PO SCH ×2 (10:00→21:05)
[2019-12-18] MEDS: MethylPREDNISolone 40 MG/ML VIAL IVP SCH (10:00)
[2019-12-18] MEDS: Potassium Chloride Elixir 20 MEQ/15 ML UDC PO SCH (10:00)
[2019-12-18] MEDS: Thiamine (B-1) 100 MG TABLET PO SCH (10:00)
[2019-12-18] MEDS ORDERED: Albumin 25% 12.5gm/50mL 12.5 GM/50 ML IV.SOLN IVPB ONE (17:44)
[2019-12-18] MEDS: Mirtazapine 15 MG TABLET PO SCH (21:05)
[2019-12-19 06:55] LABS: Basophils % 0.1 %; Hematocrit 30.8 % (37.5-50.1); Hemoglobin 10.1 g/dL (12.9-16.9); Immature Granulocytes % 0.5 % (0-4); Lymphocytes # 0.9 K/mcL (0.6-4.6); Lymphocytes % 10.9 %; Mean Corpuscular HGB Conc 32.8 g/dL (31.6-35.5); Mean Corpuscular Hemoglobin 32.4 pg (28.0-33.3); Mean Corpuscular Volume 98.7 fL (83.0-100.0); Mean Platelet Volume 8.8 fL (9.4-12.4); Monocytes # 0.4 K/mcL (0.0-1.3); Monocytes % 5.3 %; Neutrophils # 6.8 K/mcL (1.6-8.9); Platelet Count 191 K/mcL (140-400); Red Blood Count 3.12 M/mcL (4.19-5.50); Red Cell Distribution Width 16.6 % (11.5-14.5); Segmented Neutrophils % 83.2 %
[2019-12-19 06:56] LABS: White Blood Count 8.2 K/mcL (4.3-11.1)
[2019-12-19 07:16] LABS: BUN/Creatinine Ratio 19 (6-26); Blood Urea Nitrogen 13 mg/dL (8-23); Calcium 8.2 mg/dL (8.6-10.3); Carbon Dioxide 26 mEq/L (23-29); Chloride 94 mEq/L (98-107); Glucose 125 mg/dL (70-105); Osmolality,Calculated 266 (280-300); Potassium 3.5 mEq/L (3.5-5.1); Sodium 127 mEq/L (136-145); eGFR For African Americans > 60 (> 60); eGFR For Non-African Americans > 60 (> 60)
[2019-12-19] MEDS ORDERED: Albumin 25% 25gram/100mL 25 GM/100 ML IV.SOLN IVPB ONE (09:08)
[2019-12-19] MEDS ORDERED: Furosemide 40 MG/4 ML VIAL IVP SCH (09:15)
[2019-12-19] MEDS: Potassium Chloride Elixir 20 MEQ/15 ML UDC PO SCH (09:43)
[2019-12-19] MEDS: Thiamine (B-1) 100 MG TABLET PO SCH (09:43)
[2019-12-19] MEDS: Lactulose Oral Soln 20 GM/30 ML UDC PO SCH ×2 (09:43→22:43)
[2019-12-19] MEDS: Folic Acid 1 MG TABLET PO SCH (09:44)
[2019-12-19] MEDS: MethylPREDNISolone 40 MG/ML VIAL IVP SCH (09:44)
[2019-12-19] MEDS: Furosemide 40 MG TABLET PO SCH (10:17)
[2019-12-19] MEDS: Furosemide 40 MG/4 ML VIAL IVP SCH ×2 (12:50→22:43)
[2019-12-19] MEDS: Mirtazapine 15 MG TABLET PO SCH (22:43)
[2019-12-20 05:02] LABS: Hematocrit 27.9 % (37.5-50.1); Hemoglobin 9.2 g/dL (12.9-16.9); Immature Granulocytes % 0.7 % (0-4); Lymphocytes # 0.7 K/mcL (0.6-4.6); Mean Corpuscular Hemoglobin 32.3 pg (28.0-33.3); Mean Corpuscular Volume 97.9 fL (83.0-100.0); Mean Platelet Volume 8.8 fL (9.4-12.4); Monocytes # 0.6 K/mcL (0.0-1.3); Monocytes % 10.5 %; Neutrophils # 4.5 K/mcL (1.6-8.9); Platelet Count 163 K/mcL (140-400); Red Blood Count 2.85 M/mcL (4.19-5.50); Red Cell Distribution Width 16.3 % (11.5-14.5); Segmented Neutrophils % 76.8 %; White Blood Count 5.8 K/mcL (4.3-11.1)
[2019-12-20 05:28] LABS: BUN/Creatinine Ratio 22 (6-26); Blood Urea Nitrogen 11 mg/dL (8-23); Calcium 8.4 mg/dL (8.6-10.3); Carbon Dioxide 27 mEq/L (23-29); Chloride 94 mEq/L (98-107); Glucose 90 mg/dL (70-105); Osmolality,Calculated 269 (280-300); Potassium 3.1 mEq/L (3.5-5.1); Sodium 130 mEq/L (136-145); eGFR For African Americans > 60 (> 60); eGFR For Non-African Americans > 60 (> 60)
[2019-12-20] MEDS: MethylPREDNISolone 40 MG/ML VIAL IVP SCH (08:27)
[2019-12-20] MEDS: Potassium Chloride Elixir 20 MEQ/15 ML UDC PO SCH (08:28)
[2019-12-20] MEDS: Lactulose Oral Soln 20 GM/30 ML UDC PO SCH ×2 (08:28→21:20)
[2019-12-20] MEDS: Furosemide 40 MG/4 ML VIAL IVP SCH ×2 (08:28→21:19)
[2019-12-20] MEDS: Thiamine (B-1) 100 MG TABLET PO SCH (08:28)
[2019-12-20] MEDS: Folic Acid 1 MG TABLET PO SCH (08:29)
[2019-12-20] MEDS: Mirtazapine 15 MG TABLET PO SCH (21:19)
[2019-12-21 05:22] LABS: Hematocrit 23.4 % (37.5-50.1); Hemoglobin 7.8 g/dL (12.9-16.9); Immature Granulocytes % 0.4 % (0-4); Lymphocytes # 0.9 K/mcL (0.6-4.6); Lymphocytes % 19.2 %; Mean Corpuscular HGB Conc 33.3 g/dL (31.6-35.5); Mean Corpuscular Hemoglobin 32.5 pg (28.0-33.3); Mean Corpuscular Volume 97.5 fL (83.0-100.0); Mean Platelet Volume 8.4 fL (9.4-12.4); Monocytes # 0.5 K/mcL (0.0-1.3); Monocytes % 11.7 %; Neutrophils # 3.1 K/mcL (1.6-8.9); Platelet Count 119 K/mcL (140-400); Red Cell Distribution Width 16.5 % (11.5-14.5); Segmented Neutrophils % 68.7 %; White Blood Count 4.5 K/mcL (4.3-11.1)
[2019-12-21 05:42] LABS: BUN/Creatinine Ratio 26 (6-26); Blood Urea Nitrogen 11 mg/dL (8-23); Carbon Dioxide 30 mEq/L (23-29); Chloride 97 mEq/L (98-107); Glucose 84 mg/dL (70-105); Osmolality,Calculated 273 (280-300); Potassium 3.4 mEq/L (3.5-5.1); Sodium 132 mEq/L (136-145); eGFR For African Americans > 60 (> 60); eGFR For Non-African Americans > 60 (> 60)
[2019-12-21 05:58] LABS: Platelet Estimate Normal (Normal)
[2019-12-21 07:29] VITALS: BP 103/61
[2019-12-21] MEDS: Thiamine (B-1) 100 MG TABLET PO SCH (09:02)
[2019-12-21] MEDS: Lactulose Oral Soln 20 GM/30 ML UDC PO SCH (09:02)
[2019-12-21] MEDS: Potassium Chloride Elixir 20 MEQ/15 ML UDC PO SCH (09:02)
[2019-12-21] MEDS: Furosemide 40 MG/4 ML VIAL IVP SCH (09:03)
[2019-12-21] MEDS: Folic Acid 1 MG TABLET PO SCH (09:03)
[2019-12-21] MEDS: MethylPREDNISolone 40 MG/ML VIAL IVP SCH (09:03)
[2019-12-21 12:14] LABS: Hematocrit 28.1 % (37.5-50.1); Hemoglobin 9.1 g/dL (12.9-16.9)
== END 2019-12-21 13:39 | disposition home or self-care (01) | DRG 433 ==
LOC: 3ANU 15:10 → EMEROOARM 15:10 → SUATTDRO 19:40 → 3ANU 20:01
PROVIDERS: ADMIT Student in an Organized Health Care Education/Training Program; ATTEND Student in an Organized Health Care Education/Training Program

== ENCOUNTER 2020-01-14 11:00 | Inpatient (IN) ==
[2020-01-14] MEDS ORDERED: Isovue-370 500 ML BOTTLE IVP ONE (11:22)
[2020-01-14 11:46] LABS: Basophils % 1.3 %; Eosinophils # 0.1 K/mcL (0.0-0.6); Eosinophils % 5.4 %; Hemoglobin 9.1 g/dL (12.9-16.9); Immature Granulocytes % 0.4 % (0-4); Lymphocytes # 0.7 K/mcL (0.6-4.6); Lymphocytes % 28.9 %; Mean Corpuscular HGB Conc 33.7 g/dL (31.6-35.5); Mean Corpuscular Hemoglobin 32.5 pg (28.0-33.3); Mean Corpuscular Volume 96.4 fL (83.0-100.0); Mean Platelet Volume 7.7 fL (9.4-12.4); Monocytes # 0.5 K/mcL (0.0-1.3); Monocytes % 19.7 %; Neutrophils # 1.1 K/mcL (1.6-8.9); Platelet Count 150 K/mcL (140-400); Red Cell Distribution Width 15.9 % (11.5-14.5); Segmented Neutrophils % 44.3 %; White Blood Count 2.4 K/mcL (4.3-11.1)
[2020-01-14 11:55] LABS: Prothrombin Time 22.3 Seconds (9.4-12.1)
[2020-01-14 12:01] LABS: Alanine Aminotransferase 16 Units/L (7-52); Albumin/Globulin Ratio 0.4 (1.1-2.2); Alkaline Phosphatase 107 Units/L (34-104); Aspartate Amino Transferase 31 Units/L (13-39); BUN/Creatinine Ratio 15 (6-26); Bilirubin,Direct 1.1 mg/dL (0.0-0.2); Bilirubin,Indirect 2.1 mg/dL (0.0-1.0); Bilirubin,Total 3.2 mg/dL (0.3-1.0); Blood Urea Nitrogen 6 mg/dL (8-23); Carbon Dioxide 29 mEq/L (23-29); Chloride 94 mEq/L (98-107); Globulin 4.5 g/dL (2.4-3.5); Glucose 92 mg/dL (70-105); Lipase 8 Units/L (11-82); Osmolality,Calculated 261 (280-300); Potassium 3.1 mEq/L (3.5-5.1); Sodium 127 mEq/L (136-145); Total Protein 6.5 g/dL (6.4-8.9); eGFR For African Americans > 60 (> 60); eGFR For Non-African Americans > 60 (> 60)
[2020-01-14 12:15] LABS: Platelet Estimate Normal (Normal); Reactive Lymphocytes Present (Not Present)
[2020-01-14 12:50] LABS: Bilirubin,Urine Negative (Negative); Blood,Urine Negative (Negative); Clarity,Urine Clear (Clear); Color,Urine Yellow (Yellow); Glucose,Urine (UA) Normal (Normal); Ketones,Urine Negative (Negative); Leukocyte Esterase,Urine Negative (Negative); Nitrite,Urine Negative (Negative); Protein,Urine Trace mg/dL (Neg-Trace); Specific Gravity,Urine 1.024 (1.010-1.025)
[2020-01-14] MEDS ORDERED: Piperacillin/Tazobactam 3.375 GM in Water for inj. (sterile) 20 ML IVP ONE (13:17)
[2020-01-14] MEDS ORDERED: MetroNIDAZOLE 500 MG/100 ML 500 MG/100 ML BAG IVPB ONE (13:17)
[2020-01-14] MEDS ORDERED: Naloxone 0.4 MG/ML INJ IVP PRN (17:37)
[2020-01-14] MEDS: Thiamine (B-1) 100 MG, Folic Acid 1 MG, MVI, adult with vitamin K 10 ML in 0.9 % Sodi... IVPB SCH (21:21)
[2020-01-14 22:28] LABS: Hemoglobin 9.1 g/dL (12.9-16.9)
[2020-01-14 22:47] LABS: C-Reactive Protein 14 mg/L (Less than 10); Creatine Kinase 32 Units/L (30-223)
[2020-01-14 23:19] LABS: Folate > 22.3 ng/mL (3.0-16.0); Vitamin B12 1134 pg/mL (250-1100)
[2020-01-15 06:08] LABS: Basophils % 1.2 %; Eosinophils # 0.2 K/mcL (0.0-0.6); Eosinophils % 7.7 %; Hematocrit 28.9 % (37.5-50.1); Hemoglobin 9.5 g/dL (12.9-16.9); Immature Granulocytes % 0.4 % (0-4); Lymphocytes # 0.9 K/mcL (0.6-4.6); Lymphocytes % 35.2 %; Mean Corpuscular HGB Conc 32.9 g/dL (31.6-35.5); Mean Corpuscular Hemoglobin 32.1 pg (28.0-33.3); Mean Corpuscular Volume 97.6 fL (83.0-100.0); Monocytes % 13.8 %; Platelet Count 159 K/mcL (140-400); Red Blood Count 2.96 M/mcL (4.19-5.50); Segmented Neutrophils % 41.7 %; White Blood Count 2.5 K/mcL (4.3-11.1)
[2020-01-15 06:29] LABS: Alanine Aminotransferase 15 Units/L (7-52); Albumin 1.8 g/dL (3.5-5.7); Albumin/Globulin Ratio 0.4 (1.1-2.2); Alkaline Phosphatase 100 Units/L (34-104); Aspartate Amino Transferase 31 Units/L (13-39); BUN/Creatinine Ratio 17 (6-26); Bilirubin,Total 3.3 mg/dL (0.3-1.0); Blood Urea Nitrogen 7 mg/dL (8-23); Calcium 7.9 mg/dL (8.6-10.3); Carbon Dioxide 27 mEq/L (23-29); Chloride 98 mEq/L (98-107); Globulin 4.2 g/dL (2.4-3.5); Glucose 81 mg/dL (70-105); Magnesium 1.3 mg/dL (1.6-2.6); Osmolality,Calculated 265 (280-300); Phosphorous 3.3 mg/dL (2.7-4.5); Potassium 3.3 mEq/L (3.5-5.1); Sodium 129 mEq/L (136-145); eGFR For African Americans > 60 (> 60); eGFR For Non-African Americans > 60 (> 60)
[2020-01-15 06:30] LABS: Monocytes # 0.4 K/mcL (0.0-1.3)
[2020-01-15 07:01] LABS: Platelet Estimate Normal (Normal)
[2020-01-15] MEDS ORDERED: 0.9 % Sodium Chloride 500 ML ONE (14:06)
[2020-01-15] MEDS ORDERED: *HR* FentaNYL (PF) 100 MCG/2 ML VIAL IVP ONE (14:10)
[2020-01-15] MEDS ORDERED: *HR* Midazolam HCl 2 MG/2 ML VIAL IVP ONE (14:10)
[2020-01-15] MEDS: Albumin 25% 25gram/100mL 25 GM/100 ML IV.SOLN IVC SCH ×2 (16:16→17:14)
[2020-01-15 17:32] LABS: RBC,Peritoneal Fluid < 2000 RBC/mcL
[2020-01-15 17:33] LABS: Appearance of Peritoneal Fl CLEAR (Clear)
[2020-01-15] MEDS: Thiamine (B-1) 100 MG, Folic Acid 1 MG, MVI, adult with vitamin K 10 ML in 0.9 % Sodi... IVPB SCH (19:04)
[2020-01-15] MEDS: Mirtazapine 15 MG TABLET PO SCH (22:18)
[2020-01-16] MEDS: Piperacillin/Tazobactam 3.375 GM in 0.9 % Sodium Chloride Mini Bag 100 ML IVPB SCH ×4 (00:04→23:35)
[2020-01-16 04:35] LABS: Hematocrit 27.6 % (37.5-50.1); Hemoglobin 9.1 g/dL (12.9-16.9); Mean Corpuscular Volume 97.2 fL (83.0-100.0); Mean Platelet Volume 8.3 fL (9.4-12.4); Platelet Count 124 K/mcL (140-400); Red Blood Count 2.84 M/mcL (4.19-5.50); Red Cell Distribution Width 16.3 % (11.5-14.5); White Blood Count 2.7 K/mcL (4.3-11.1)
[2020-01-16 04:57] LABS: Alanine Aminotransferase 12 Units/L (7-52); Albumin/Globulin Ratio 0.6 (1.1-2.2); Alkaline Phosphatase 88 Units/L (34-104); Aspartate Amino Transferase 27 Units/L (13-39); BUN/Creatinine Ratio 15 (6-26); Bilirubin,Total 3.7 mg/dL (0.3-1.0); Blood Urea Nitrogen 7 mg/dL (8-23); Calcium 7.9 mg/dL (8.6-10.3); Carbon Dioxide 25 mEq/L (23-29); Chloride 98 mEq/L (98-107); Globulin 3.4 g/dL (2.4-3.5); Glucose 118 mg/dL (70-105); Magnesium 1.5 mg/dL (1.6-2.6); Osmolality,Calculated 267 (280-300); Phosphorous 2.7 mg/dL (2.7-4.5); Potassium 3.1 mEq/L (3.5-5.1); Sodium 129 mEq/L (136-145); Total Protein 5.4 g/dL (6.4-8.9); eGFR For African Americans > 60 (> 60); eGFR For Non-African Americans > 60 (> 60)
[2020-01-16 05:54] LABS: Lymphocytes # 0.6 K/mcL (0.6-4.6); Monocytes # 0.1 K/mcL (0.0-1.3); Neutrophils # 2.1 K/mcL (1.6-8.9)
[2020-01-16 05:55] LABS: Anisocytosis 1+ (Not Present); Burr Cells 1+ (Not Present); Microcytosis Present (Not Present); Reactive Lymphocytes Present (Not Present)
[2020-01-16 05:56] LABS: Platelet Estimate Decreased (Normal)
[2020-01-16 13:54] LABS: Amylase,Peritoneal Fluid < 10 Units/L (No Ref Range); Glucose,Peritoneal Fluid 83 mg/dL (No Ref Range); LDH,Peritoneal Fluid 62 Units/L (No Ref Range); Total Protein,Peritoneal Fluid < 3.0 g/dL
[2020-01-16] MEDS ORDERED: Lactulose Oral Soln 20 GM/30 ML UDC PO SCH (21:00)
[2020-01-16] MEDS: Thiamine (B-1) 100 MG, Folic Acid 1 MG, MVI, adult with vitamin K 10 ML in 0.9 % Sodi... IVPB SCH (21:15)
[2020-01-16] MEDS: Mirtazapine 15 MG TABLET PO SCH (21:15)
[2020-01-16] MEDS: Lactulose Oral Soln 20 GM/30 ML UDC PO SCH (21:16)
[2020-01-17] MEDS ORDERED: Acetaminophen 325 MG TABLET PO PRN (04:54)
[2020-01-17] MEDS ORDERED: Naloxone 0.4 MG/ML INJ IVP PRN (04:54)
[2020-01-17] MEDS: *HR* OxyCODONE Immed Rel 5 MG TABLET PO PRN (05:11)
[2020-01-17] MEDS: Lactulose Oral Soln 20 GM/30 ML UDC PO SCH ×2 (08:26→20:11)
[2020-01-17] MEDS: Piperacillin/Tazobactam 3.375 GM in 0.9 % Sodium Chloride Mini Bag 100 ML IVPB SCH ×3 (08:26→23:47)
[2020-01-17 11:34] LABS: Basophils % 1.4 %; Eosinophils # 0.2 K/mcL (0.0-0.6); Eosinophils % 6.9 %; Hematocrit 27.6 % (37.5-50.1); Hemoglobin 8.8 g/dL (12.9-16.9); Immature Granulocytes % 0.4 % (0-4); Lymphocytes # 0.9 K/mcL (0.6-4.6); Lymphocytes % 31.9 %; Mean Corpuscular HGB Conc 31.9 g/dL (31.6-35.5); Mean Corpuscular Hemoglobin 32.1 pg (28.0-33.3); Mean Corpuscular Volume 100.7 fL (83.0-100.0); Mean Platelet Volume 8.2 fL (9.4-12.4); Monocytes # 0.5 K/mcL (0.0-1.3); Neutrophils # 1.2 K/mcL (1.6-8.9); Platelet Count 122 K/mcL (140-400); Red Blood Count 2.74 M/mcL (4.19-5.50); Red Cell Distribution Width 16.7 % (11.5-14.5); Segmented Neutrophils % 42.4 %; White Blood Count 2.8 K/mcL (4.3-11.1)
[2020-01-17 11:36] LABS: Platelet Estimate Slight Decrease (Normal); Reactive Lymphocytes Present (Not Present)
[2020-01-17 11:53] LABS: BUN/Creatinine Ratio 17 (6-26); Blood Urea Nitrogen 8 mg/dL (8-23); Calcium 7.7 mg/dL (8.6-10.3); Carbon Dioxide 25 mEq/L (23-29); Chloride 101 mEq/L (98-107); Glucose 109 mg/dL (70-105); Magnesium 1.4 mg/dL (1.6-2.6); Osmolality,Calculated 269 (280-300); Phosphorous 2.6 mg/dL (2.7-4.5); Potassium 3.6 mEq/L (3.5-5.1); Sodium 130 mEq/L (136-145); eGFR For African Americans > 60 (> 60); eGFR For Non-African Americans > 60 (> 60)
[2020-01-17] MEDS: Mirtazapine 15 MG TABLET PO SCH (20:17)
[2020-01-18 00:52] LABS: Fluid Source for Albumin ASCITES
[2020-01-18] MEDS: *HR* OxyCODONE Immed Rel 5 MG TABLET PO PRN (01:07)
[2020-01-18] MEDS: Piperacillin/Tazobactam 3.375 GM in 0.9 % Sodium Chloride Mini Bag 100 ML IVPB SCH ×2 (08:24→16:02)
[2020-01-18] MEDS: Lactulose Oral Soln 20 GM/30 ML UDC PO SCH ×2 (08:26→20:15)
[2020-01-18 08:38] LABS: Basophils # 0.1 K/mcL (0.0-0.2); Basophils % 2.2 %; Eosinophils # 0.3 K/mcL (0.0-0.6); Hematocrit 30.4 % (37.5-50.1); Hemoglobin 9.6 g/dL (12.9-16.9); Immature Granulocytes % 0.3 % (0-4); Lymphocytes % 33.3 %; Mean Corpuscular HGB Conc 31.6 g/dL (31.6-35.5); Mean Corpuscular Hemoglobin 32.1 pg (28.0-33.3); Mean Corpuscular Volume 101.7 fL (83.0-100.0); Mean Platelet Volume 8.5 fL (9.4-12.4); Monocytes # 0.5 K/mcL (0.0-1.3); Monocytes % 14.7 %; Neutrophils # 1.3 K/mcL (1.6-8.9); Platelet Count 126 K/mcL (140-400); Red Blood Count 2.99 M/mcL (4.19-5.50); Red Cell Distribution Width 16.7 % (11.5-14.5); Segmented Neutrophils % 41.5 %; White Blood Count 3.1 K/mcL (4.3-11.1)
[2020-01-18 08:58] LABS: BUN/Creatinine Ratio 20 (6-26); Blood Urea Nitrogen 8 mg/dL (8-23); Calcium 7.8 mg/dL (8.6-10.3); Carbon Dioxide 26 mEq/L (23-29); Chloride 102 mEq/L (98-107); Glucose 74 mg/dL (70-105); Osmolality,Calculated 269 (280-300); Potassium 4.3 mEq/L (3.5-5.1); Sodium 131 mEq/L (136-145); eGFR For African Americans > 60 (> 60); eGFR For Non-African Americans > 60 (> 60)
[2020-01-18 09:16] LABS: Anisocytosis 1+ (Not Present); Platelet Estimate Slight Decrease (Normal); Poikilocytosis 1+ (Not Present); Reactive Lymphocytes Present (Not Present)
[2020-01-18] MEDS: Folic Acid 1 MG TABLET PO SCH (09:51)
[2020-01-18] MEDS: Thiamine (B-1) 100 MG TABLET PO SCH (09:51)
[2020-01-18] MEDS: Mirtazapine 15 MG TABLET PO SCH (20:15)
[2020-01-18] MEDS ORDERED: Vancomycin 500 MG in 0.9 % Sodium Chloride Mini Bag 100 ML IVPB ONE (23:00)
[2020-01-19] MEDS: Piperacillin/Tazobactam 3.375 GM in 0.9 % Sodium Chloride Mini Bag 100 ML IVPB SCH ×3 (00:38→17:30)
[2020-01-19] MEDS ORDERED: *HR* LORazepam 2 MG/ML VIAL IVP ONE ×2 (03:24→15:23)
[2020-01-19 05:11] LABS: Basophils # 0.1 K/mcL (0.0-0.2); Basophils % 2.1 %; Eosinophils # 0.2 K/mcL (0.0-0.6); Eosinophils % 7.4 %; Hematocrit 29.4 % (37.5-50.1); Hemoglobin 9.2 g/dL (12.9-16.9); Immature Granulocytes % 0.4 % (0-4); Lymphocytes % 33.9 %; Mean Corpuscular HGB Conc 31.3 g/dL (31.6-35.5); Mean Corpuscular Hemoglobin 31.6 pg (28.0-33.3); Mean Platelet Volume 8.2 fL (9.4-12.4); Monocytes # 0.4 K/mcL (0.0-1.3); Monocytes % 13.8 %; Neutrophils # 1.2 K/mcL (1.6-8.9); Platelet Count 128 K/mcL (140-400); Red Blood Count 2.91 M/mcL (4.19-5.50); Red Cell Distribution Width 16.9 % (11.5-14.5); Segmented Neutrophils % 42.4 %; White Blood Count 2.8 K/mcL (4.3-11.1)
[2020-01-19 05:31] LABS: BUN/Creatinine Ratio 16 (6-26); Blood Urea Nitrogen 8 mg/dL (8-23); Calcium 7.9 mg/dL (8.6-10.3); Carbon Dioxide 24 mEq/L (23-29); Chloride 101 mEq/L (98-107); Glucose 83 mg/dL (70-105); Osmolality,Calculated 265 (280-300); Potassium 3.8 mEq/L (3.5-5.1); Sodium 129 mEq/L (136-145); eGFR For African Americans > 60 (> 60); eGFR For Non-African Americans > 60 (> 60)
[2020-01-19 05:34] LABS: Platelet Estimate Slight Decrease (Normal)
[2020-01-19 05:35] LABS: Anisocytosis 1+ (Not Present); Burr Cells 1+ (Not Present); Macrocytosis Present (Not Present); Poikilocytosis 1+ (Not Present); Schistocytes 1+ (Not Present)
[2020-01-19 08:07] LABS: Magnesium 1.3 mg/dL (1.6-2.6)
[2020-01-19] MEDS: Thiamine (B-1) 100 MG TABLET PO SCH (09:04)
[2020-01-19] MEDS: Folic Acid 1 MG TABLET PO SCH (09:04)
[2020-01-19] MEDS: Lactulose Oral Soln 20 GM/30 ML UDC PO SCH ×2 (09:04→20:09)
[2020-01-19] MEDS: Vancomycin 1,500 MG/265 ML IV.SOLN IVPB SCH ×2 (15:35→20:39)
[2020-01-19] MEDS: Mirtazapine 15 MG TABLET PO SCH (20:00)
[2020-01-19] MEDS: QUEtiapine Fumarate 25 MG TABLET PO SCH (20:06)
[2020-01-19] MEDS ORDERED: diazePAM 10 MG/2 ML SYRINGE IVP PRN (21:30)
[2020-01-20] MEDS: Piperacillin/Tazobactam 3.375 GM in 0.9 % Sodium Chloride Mini Bag 100 ML IVPB SCH ×3 (01:45→16:04)
[2020-01-20 04:19] LABS: Basophils # 0.1 K/mcL (0.0-0.2); Basophils % 1.5 %; Eosinophils # 0.3 K/mcL (0.0-0.6); Eosinophils % 8.2 %; Hematocrit 26.6 % (37.5-50.1); Hemoglobin 8.8 g/dL (12.9-16.9); Immature Granulocytes % 0.3 % (0-4); Lymphocytes # 1.1 K/mcL (0.6-4.6); Lymphocytes % 31.5 %; Mean Corpuscular HGB Conc 33.1 g/dL (31.6-35.5); Mean Corpuscular Hemoglobin 32.7 pg (28.0-33.3); Mean Corpuscular Volume 98.9 fL (83.0-100.0); Mean Platelet Volume 8.1 fL (9.4-12.4); Monocytes # 0.5 K/mcL (0.0-1.3); Monocytes % 15.6 %; Neutrophils # 1.5 K/mcL (1.6-8.9); Platelet Count 130 K/mcL (140-400); Red Blood Count 2.69 M/mcL (4.19-5.50); Segmented Neutrophils % 42.9 %; White Blood Count 3.4 K/mcL (4.3-11.1)
[2020-01-20 04:34] LABS: BUN/Creatinine Ratio 16 (6-26); Blood Urea Nitrogen 7 mg/dL (8-23); Calcium 7.8 mg/dL (8.6-10.3); Carbon Dioxide 22 mEq/L (23-29); Chloride 103 mEq/L (98-107); Glucose 74 mg/dL (70-105); Magnesium 1.6 mg/dL (1.6-2.6); Osmolality,Calculated 269 (280-300); Phosphorous 2.8 mg/dL (2.7-4.5); Potassium 3.8 mEq/L (3.5-5.1); Sodium 131 mEq/L (136-145); eGFR For African Americans > 60 (> 60); eGFR For Non-African Americans > 60 (> 60)
[2020-01-20 05:29] LABS: Anisocytosis 1+ (Not Present); Poikilocytosis 1+ (Not Present)
[2020-01-20 05:30] LABS: Platelet Estimate Slight Decrease (Normal); Reactive Lymphocytes Present (Not Present)
[2020-01-20 09:11] LABS: Thyroid Stimulating Hormone 5.752 mcIU/mL (0.340-5.600)
[2020-01-20] MEDS: Thiamine (B-1) 100 MG TABLET PO SCH ×2 (09:17→16:25)
[2020-01-20] MEDS: Folic Acid 1 MG TABLET PO SCH ×2 (09:18→16:25)
[2020-01-20] MEDS: Lactulose Oral Soln 20 GM/30 ML UDC PO SCH (09:21)
[2020-01-20] MEDS: Vancomycin 1,500 MG/265 ML IV.SOLN IVPB SCH (11:22)
[2020-01-20 11:37] LABS: Triiodothyronine (T3) Free 1.96 pg/mL (2.50-3.90)
[2020-01-20] MEDS: Lactulose Oral Soln 20 GM/30 ML UDC RC SCH ×2 (16:04→22:08)
[2020-01-20] MEDS: QUEtiapine Fumarate 25 MG TABLET PO SCH (20:26)
[2020-01-20] MEDS: Mirtazapine 15 MG TABLET PO SCH (20:26)
[2020-01-20] MEDS: Vancomycin 1,250 MG/262.5 ML IV.SOLN IVPB SCH (22:19)
[2020-01-21] MEDS: Piperacillin/Tazobactam 3.375 GM in 0.9 % Sodium Chloride Mini Bag 100 ML IVPB SCH ×3 (00:11→16:52)
[2020-01-21] MEDS: Lactulose Oral Soln 20 GM/30 ML UDC RC SCH (08:12)
[2020-01-21] MEDS: Folic Acid 1 MG TABLET PO SCH (08:12)
[2020-01-21] MEDS: Thiamine (B-1) 100 MG TABLET PO SCH (08:12)
[2020-01-21 09:02] LABS: Basophils # 0.1 K/mcL (0.0-0.2); Basophils % 1.6 %; Eosinophils # 0.1 K/mcL (0.0-0.6); Eosinophils % 2.2 %; Hematocrit 27.3 % (37.5-50.1); Hemoglobin 8.9 g/dL (12.9-16.9); Immature Granulocytes % 0.3 % (0-4); Lymphocytes % 29.8 %; Mean Corpuscular HGB Conc 32.6 g/dL (31.6-35.5); Mean Corpuscular Volume 101.1 fL (83.0-100.0); Mean Platelet Volume 8.5 fL (9.4-12.4); Monocytes # 0.4 K/mcL (0.0-1.3); Monocytes % 12.7 %; Neutrophils # 1.7 K/mcL (1.6-8.9); Platelet Count 117 K/mcL (140-400); Red Cell Distribution Width 17.7 % (11.5-14.5); Segmented Neutrophils % 53.4 %; White Blood Count 3.2 K/mcL (4.3-11.1)
[2020-01-21 09:06] LABS: INR 1.7; Prothrombin Time 19.6 Seconds (9.4-12.1)
[2020-01-21 09:09] LABS: Activated Partial Thrombo Time 41.9 Seconds (26.0-36.0)
[2020-01-21 09:21] LABS: BUN/Creatinine Ratio 13 (6-26); Blood Urea Nitrogen 10 mg/dL (8-23); Calcium 8.2 mg/dL (8.6-10.3); Carbon Dioxide 22 mEq/L (23-29); Chloride 105 mEq/L (98-107); Glucose 60 mg/dL (70-105); Magnesium 1.9 mg/dL (1.6-2.6); Osmolality,Calculated 273 (280-300); Phosphorous 3.8 mg/dL (2.7-4.5); Potassium 3.9 mEq/L (3.5-5.1); Sodium 133 mEq/L (136-145); eGFR For African Americans > 60 (> 60); eGFR For Non-African Americans > 60 (> 60)
[2020-01-21] MEDS ORDERED: Lidocaine -MPF 1% 5 ML AMPUL INFILT ONE (10:12)
[2020-01-21] MEDS: Lactulose Oral Soln 20 GM/30 ML UDC PO SCH ×2 (10:45→20:15)
[2020-01-21] MEDS: Vancomycin 1,250 MG/262.5 ML IV.SOLN IVPB SCH (10:48)
[2020-01-21] MEDS ORDERED: Furosemide 40 MG TABLET PO SCH (12:00)
[2020-01-21 14:59] LABS: RBC,Pleural Fluid < 2000 RBC/mcL
[2020-01-21 15:03] LABS: Appearance of Pleural Fl Clear (Clear)
[2020-01-21 15:04] LABS: Amylase,Pleural Fluid < 10 Units/L (No Ref Range); Glucose,Pleural Fluid 68 mg/dL (No Ref Range); LDH,Pleural Fluid 54 Units/L (No Ref Range); Total Protein,Pleural Fluid < 3.0 g/dL
[2020-01-21] MEDS: QUEtiapine Fumarate 25 MG TABLET PO SCH (20:15)
[2020-01-21] MEDS: Mirtazapine 15 MG TABLET PO SCH (20:15)
[2020-01-22] MEDS: Piperacillin/Tazobactam 3.375 GM in 0.9 % Sodium Chloride Mini Bag 100 ML IVPB SCH (00:20)
[2020-01-22] MEDS: Lactulose Oral Soln 20 GM/30 ML UDC PO SCH ×3 (04:30→20:19)
[2020-01-22 04:48] LABS: Basophils # 0.1 K/mcL (0.0-0.2); Basophils % 1.7 %; Eosinophils # 0.2 K/mcL (0.0-0.6); Eosinophils % 5.6 %; Hematocrit 22.6 % (37.5-50.1); Hemoglobin 7.5 g/dL (12.9-16.9); Immature Granulocytes % 0.3 % (0-4); Immature Platelets 0.7 % (1.1-6.1); Lymphocytes # 0.8 K/mcL (0.6-4.6); Lymphocytes % 28.6 %; Mean Corpuscular HGB Conc 33.2 g/dL (31.6-35.5); Mean Corpuscular Hemoglobin 33.3 pg (28.0-33.3); Mean Corpuscular Volume 100.4 fL (83.0-100.0); Mean Platelet Volume 8.7 fL (9.4-12.4); Monocytes # 0.4 K/mcL (0.0-1.3); Monocytes % 13.6 %; Neutrophils # 1.5 K/mcL (1.6-8.9); Platelet Count 123 K/mcL (140-400); Red Blood Count 2.25 M/mcL (4.19-5.50); Red Cell Distribution Width 17.9 % (11.5-14.5); Segmented Neutrophils % 50.2 %; White Blood Count 2.9 K/mcL (4.3-11.1)
[2020-01-22 04:59] LABS: BUN/Creatinine Ratio 11 (6-26); Blood Urea Nitrogen 11 mg/dL (8-23); Calcium 7.8 mg/dL (8.6-10.3); Carbon Dioxide 23 mEq/L (23-29); Chloride 104 mEq/L (98-107); Glucose 112 mg/dL (70-105); Osmolality,Calculated 276 (280-300); Potassium 3.2 mEq/L (3.5-5.1); Sodium 133 mEq/L (136-145); eGFR For African Americans > 60 (> 60); eGFR For Non-African Americans > 60 (> 60)
[2020-01-22 05:22] LABS: Anisocytosis 1+ (Not Present); Platelet Estimate Decreased (Normal); Reactive Lymphocytes Present (Not Present)
[2020-01-22] MEDS ORDERED: Furosemide 40 MG TABLET PO SCH (09:00)
[2020-01-22 09:06] LABS: Magnesium 1.6 mg/dL (1.6-2.6); Phosphorous 3.6 mg/dL (2.7-4.5)
[2020-01-22] MEDS: Folic Acid 1 MG TABLET PO SCH (09:20)
[2020-01-22] MEDS: Thiamine (B-1) 100 MG TABLET PO SCH (09:20)
[2020-01-22] MEDS ORDERED: 0.9 % Sodium Chloride 500 ML IVC ONE (11:14)
[2020-01-22] MEDS ORDERED: QUEtiapine Fumarate 25 MG TABLET PO PRN (14:34)
[2020-01-22] MEDS: Mirtazapine 15 MG TABLET PO SCH (20:19)
[2020-01-22] MEDS: Vancomycin 1,250 MG/262.5 ML IV.SOLN IVPB SCH (21:52)
[2020-01-23 04:35] LABS: Basophils # 0.1 K/mcL (0.0-0.2); Basophils % 1.3 %; Eosinophils # 0.3 K/mcL (0.0-0.6); Eosinophils % 5.9 %; Hematocrit 28.3 % (37.5-50.1); Immature Granulocytes % 0.2 % (0-4); Lymphocytes # 1.4 K/mcL (0.6-4.6); Lymphocytes % 28.4 %; Mean Corpuscular HGB Conc 33.2 g/dL (31.6-35.5); Mean Corpuscular Hemoglobin 32.9 pg (28.0-33.3); Mean Platelet Volume 8.6 fL (9.4-12.4); Monocytes # 0.6 K/mcL (0.0-1.3); Neutrophils # 2.5 K/mcL (1.6-8.9); Platelet Count 130 K/mcL (140-400); Red Blood Count 2.86 M/mcL (4.19-5.50); Red Cell Distribution Width 17.5 % (11.5-14.5); Segmented Neutrophils % 52.2 %
[2020-01-23 04:54] LABS: BUN/Creatinine Ratio 9 (6-26); Blood Urea Nitrogen 9 mg/dL (8-23); Calcium 8.2 mg/dL (8.6-10.3); Carbon Dioxide 22 mEq/L (23-29); Chloride 106 mEq/L (98-107); Glucose 87 mg/dL (70-105); Osmolality,Calculated 276 (280-300); Potassium 3.2 mEq/L (3.5-5.1); Sodium 134 mEq/L (136-145); eGFR For African Americans > 60 (> 60); eGFR For Non-African Americans > 60 (> 60)
[2020-01-23 05:03] LABS: Hemoglobin 9.4 g/dL (12.9-16.9); White Blood Count 4.8 K/mcL (4.3-11.1)
[2020-01-23 05:52] LABS: Hypochromasia Present (Not Present); Platelet Estimate Slight Decrease (Normal); Poikilocytosis 1+ (Not Present)
[2020-01-23 05:53] LABS: Reactive Lymphocytes Present (Not Present)
[2020-01-23] MEDS: Thiamine (B-1) 100 MG TABLET PO SCH (07:27)
[2020-01-23] MEDS: Folic Acid 1 MG TABLET PO SCH (07:27)
[2020-01-23] MEDS: Lactulose Oral Soln 20 GM/30 ML UDC PO SCH ×2 (07:27→23:59)
[2020-01-23] MEDS: Mirtazapine 15 MG TABLET PO SCH (23:58)
[2020-01-24 03:45] LABS: Basophils % 0.9 %; Eosinophils # 0.3 K/mcL (0.0-0.6); Eosinophils % 6.2 %; Hematocrit 26.7 % (37.5-50.1); Hemoglobin 8.6 g/dL (12.9-16.9); Immature Granulocytes % 0.5 % (0-4); Lymphocytes % 23.3 %; Mean Corpuscular HGB Conc 32.2 g/dL (31.6-35.5); Mean Corpuscular Volume 99.3 fL (83.0-100.0); Mean Platelet Volume 8.7 fL (9.4-12.4); Monocytes # 0.5 K/mcL (0.0-1.3); Monocytes % 10.4 %; Platelet Count 107 K/mcL (140-400); Red Blood Count 2.69 M/mcL (4.19-5.50); Red Cell Distribution Width 17.7 % (11.5-14.5); Segmented Neutrophils % 58.7 %; White Blood Count 4.3 K/mcL (4.3-11.1)
[2020-01-24 03:50] LABS: Neutrophils # 2.5 K/mcL (1.6-8.9)
[2020-01-24 04:05] LABS: BUN/Creatinine Ratio 11 (6-26); Blood Urea Nitrogen 9 mg/dL (8-23); Carbon Dioxide 23 mEq/L (23-29); Chloride 106 mEq/L (98-107); Glucose 87 mg/dL (70-105); Magnesium 1.6 mg/dL (1.6-2.6); Osmolality,Calculated 274 (280-300); Phosphorous 2.7 mg/dL (2.7-4.5); Potassium 3.6 mEq/L (3.5-5.1); Sodium 133 mEq/L (136-145); eGFR For African Americans > 60 (> 60); eGFR For Non-African Americans > 60 (> 60)
[2020-01-24 04:24] LABS: Platelet Estimate Slight Decrease (Normal); Poikilocytosis 1+ (Not Present); Reactive Lymphocytes Present (Not Present)
[2020-01-24] MEDS: Folic Acid 1 MG TABLET PO SCH (08:27)
[2020-01-24] MEDS: Thiamine (B-1) 100 MG TABLET PO SCH (08:27)
[2020-01-24] MEDS: Lactulose Oral Soln 20 GM/30 ML UDC PO SCH ×2 (08:27→23:03)
[2020-01-24] MEDS: Furosemide 20 MG TABLET PO SCH (08:27)
[2020-01-24] MEDS: Mirtazapine 15 MG TABLET PO SCH (23:03)
[2020-01-25 04:07] LABS: Basophils % 0.5 %
[2020-01-25 04:08] LABS: Eosinophils # 0.2 K/mcL (0.0-0.6); Eosinophils % 3.2 %; Hematocrit 25.7 % (37.5-50.1); Hemoglobin 8.3 g/dL (12.9-16.9); Immature Granulocytes % 0.4 % (0-4); Immature Platelets 1.1 % (1.1-6.1); Lymphocytes # 0.9 K/mcL (0.6-4.6); Mean Corpuscular HGB Conc 32.3 g/dL (31.6-35.5); Mean Corpuscular Hemoglobin 31.9 pg (28.0-33.3); Mean Corpuscular Volume 98.8 fL (83.0-100.0); Mean Platelet Volume 8.9 fL (9.4-12.4); Monocytes # 0.6 K/mcL (0.0-1.3); Platelet Count 112 K/mcL (140-400); Red Cell Distribution Width 17.5 % (11.5-14.5); Segmented Neutrophils % 70.9 %; White Blood Count 5.7 K/mcL (4.3-11.1)
[2020-01-25 04:24] LABS: BUN/Creatinine Ratio 12 (6-26); Blood Urea Nitrogen 11 mg/dL (8-23); Calcium 8.2 mg/dL (8.6-10.3); Carbon Dioxide 24 mEq/L (23-29); Chloride 106 mEq/L (98-107); Glucose 96 mg/dL (70-105); Magnesium 1.4 mg/dL (1.6-2.6); Osmolality,Calculated 277 (280-300); Potassium 3.6 mEq/L (3.5-5.1); Sodium 134 mEq/L (136-145); eGFR For African Americans > 60 (> 60); eGFR For Non-African Americans > 60 (> 60)
[2020-01-25] MEDS: Thiamine (B-1) 100 MG TABLET PO SCH (09:38)
[2020-01-25] MEDS: Lactulose Oral Soln 20 GM/30 ML UDC PO SCH ×2 (09:38→21:43)
[2020-01-25] MEDS: Folic Acid 1 MG TABLET PO SCH (09:38)
[2020-01-25] MEDS: Furosemide 20 MG TABLET PO SCH (09:38)
[2020-01-25] MEDS: Mirtazapine 15 MG TABLET PO SCH (21:43)
[2020-01-26 04:22] LABS: Basophils % 0.6 %; Lymphocytes % 15.2 %; Mean Corpuscular Volume 99.2 fL (83.0-100.0)
[2020-01-26 04:24] LABS: Eosinophils # 0.1 K/mcL (0.0-0.6); Eosinophils % 1.1 %; Hematocrit 23.6 % (37.5-50.1); Hemoglobin 7.8 g/dL (12.9-16.9); Immature Granulocytes % 0.6 % (0-4); Immature Platelets 1.2 % (1.1-6.1); Mean Corpuscular HGB Conc 33.1 g/dL (31.6-35.5); Mean Corpuscular Hemoglobin 32.8 pg (28.0-33.3); Monocytes # 0.5 K/mcL (0.0-1.3); Monocytes % 8.2 %; Neutrophils # 4.9 K/mcL (1.6-8.9); Nucleated Red Blood Cells 0.3 /100 WBC (0); Platelet Count 104 K/mcL (140-400); Red Blood Count 2.38 M/mcL (4.19-5.50); Red Cell Distribution Width 17.2 % (11.5-14.5); Segmented Neutrophils % 74.3 %; White Blood Count 6.6 K/mcL (4.3-11.1)
[2020-01-26 04:39] LABS: Albumin 1.7 g/dL (3.5-5.7); Albumin/Globulin Ratio 0.4 (1.1-2.2); Globulin 3.9 g/dL (2.4-3.5); Total Protein 5.6 g/dL (6.4-8.9)
[2020-01-26 04:40] LABS: BUN/Creatinine Ratio 11 (6-26); Blood Urea Nitrogen 11 mg/dL (8-23); Carbon Dioxide 24 mEq/L (23-29); Chloride 104 mEq/L (98-107); Glucose 98 mg/dL (70-105); Magnesium 1.6 mg/dL (1.6-2.6); Osmolality,Calculated 273 (280-300); Phosphorous 2.6 mg/dL (2.7-4.5); Potassium 3.5 mEq/L (3.5-5.1); Sodium 132 mEq/L (136-145); eGFR For African Americans > 60 (> 60); eGFR For Non-African Americans > 60 (> 60)
[2020-01-26 04:52] LABS: Prothrombin Time 22.7 Seconds (9.4-12.1)
[2020-01-26] MEDS: Lactulose Oral Soln 20 GM/30 ML UDC PO SCH ×2 (07:58→20:03)
[2020-01-26] MEDS: Thiamine (B-1) 100 MG TABLET PO SCH (07:58)
[2020-01-26] MEDS: Folic Acid 1 MG TABLET PO SCH (07:58)
[2020-01-26] MEDS: Furosemide 20 MG TABLET PO SCH (07:58)
[2020-01-26] MEDS ORDERED: DESMOPRESSIN ACETATE IVPB ONE (11:46)
[2020-01-26] MEDS ORDERED: *HR* Phytonadione 5 MG TABLET PO ONE (11:46)
[2020-01-26] MEDS ORDERED: SODIUM CHLORIDE 0.9% IVPB ONE (11:46)
[2020-01-26] MEDS: Mirtazapine 15 MG TABLET PO SCH (20:03)
[2020-01-26] MEDS: *HR* OxyCODONE Immed Rel 5 MG TABLET PO PRN (23:16)
[2020-01-27 04:14] LABS: Basophils % 0.5 %; Hemoglobin 7.2 g/dL (12.9-16.9); Immature Granulocytes % 0.3 % (0-4)
[2020-01-27 04:16] LABS: Eosinophils # 0.2 K/mcL (0.0-0.6); Eosinophils % 2.5 %; Immature Platelets 1.3 % (1.1-6.1); Lymphocytes # 0.9 K/mcL (0.6-4.6); Lymphocytes % 15.7 %; Mean Corpuscular HGB Conc 32.7 g/dL (31.6-35.5); Mean Corpuscular Hemoglobin 32.9 pg (28.0-33.3); Mean Corpuscular Volume 100.5 fL (83.0-100.0); Mean Platelet Volume 8.9 fL (9.4-12.4); Monocytes # 0.6 K/mcL (0.0-1.3); Monocytes % 9.5 %; Neutrophils # 4.3 K/mcL (1.6-8.9); Platelet Count 104 K/mcL (140-400); Red Blood Count 2.19 M/mcL (4.19-5.50); Red Cell Distribution Width 16.6 % (11.5-14.5); Segmented Neutrophils % 71.5 %
[2020-01-27 04:17] LABS: INR 2.1; Prothrombin Time 23.9 Seconds (9.4-12.1)
[2020-01-27 04:35] LABS: BUN/Creatinine Ratio 11 (6-26); Blood Urea Nitrogen 11 mg/dL (8-23); Calcium 7.7 mg/dL (8.6-10.3); Carbon Dioxide 23 mEq/L (23-29); Chloride 104 mEq/L (98-107); Glucose 89 mg/dL (70-105); Osmolality,Calculated 271 (280-300); Potassium 3.6 mEq/L (3.5-5.1); Sodium 131 mEq/L (136-145); eGFR For African Americans > 60 (> 60); eGFR For Non-African Americans > 60 (> 60)
[2020-01-27 04:44] LABS: Platelet Estimate Slight Decrease (Normal)
[2020-01-27] MEDS: Furosemide 20 MG TABLET PO SCH (09:18)
[2020-01-27] MEDS: Thiamine (B-1) 100 MG TABLET PO SCH (09:18)
[2020-01-27] MEDS: Folic Acid 1 MG TABLET PO SCH (09:18)
[2020-01-27] MEDS: Lactulose Oral Soln 20 GM/30 ML UDC PO SCH ×2 (09:19→21:46)
[2020-01-27] MEDS: Doxycycline 100 MG CAPSULE PO SCH ×2 (17:10→21:46)
[2020-01-27] MEDS: Mirtazapine 15 MG TABLET PO SCH (21:46)
[2020-01-28 05:34] LABS: Hematocrit 22.8 % (37.5-50.1); Hemoglobin 7.5 g/dL (12.9-16.9); Immature Platelets 1.6 % (1.1-6.1); Mean Corpuscular HGB Conc 32.9 g/dL (31.6-35.5); Mean Corpuscular Hemoglobin 32.3 pg (28.0-33.3); Mean Corpuscular Volume 98.3 fL (83.0-100.0); Mean Platelet Volume 8.8 fL (9.4-12.4); Red Blood Count 2.32 M/mcL (4.19-5.50); Red Cell Distribution Width 16.9 % (11.5-14.5); White Blood Count 5.4 K/mcL (4.3-11.1)
[2020-01-28 05:56] LABS: BUN/Creatinine Ratio 10 (6-26); Blood Urea Nitrogen 12 mg/dL (8-23); Calcium 7.8 mg/dL (8.6-10.3); Carbon Dioxide 22 mEq/L (23-29); Chloride 102 mEq/L (98-107); Glucose 85 mg/dL (70-105); Magnesium 1.6 mg/dL (1.6-2.6); Osmolality,Calculated 269 (280-300); Potassium 3.5 mEq/L (3.5-5.1); Sodium 130 mEq/L (136-145); eGFR For African Americans > 60 (> 60); eGFR For Non-African Americans > 60 (> 60)
[2020-01-28] MEDS: Lactulose Oral Soln 20 GM/30 ML UDC PO SCH ×2 (08:38→21:29)
[2020-01-28] MEDS: Thiamine (B-1) 100 MG TABLET PO SCH (08:38)
[2020-01-28] MEDS: Furosemide 20 MG TABLET PO SCH (08:39)
[2020-01-28] MEDS: Doxycycline 100 MG CAPSULE PO SCH ×2 (08:39→21:29)
[2020-01-28] MEDS: Folic Acid 1 MG TABLET PO SCH (08:39)
[2020-01-28] MEDS: *HR* OxyCODONE Immed Rel 5 MG TABLET PO PRN (21:29)
[2020-01-28] MEDS: Mirtazapine 15 MG TABLET PO SCH (21:29)
[2020-01-29 04:06] LABS: Hematocrit 23.3 % (37.5-50.1); Hemoglobin 7.6 g/dL (12.9-16.9); Mean Corpuscular HGB Conc 32.6 g/dL (31.6-35.5); Mean Corpuscular Hemoglobin 32.2 pg (28.0-33.3); Mean Corpuscular Volume 98.7 fL (83.0-100.0); Mean Platelet Volume 9.1 fL (9.4-12.4); Platelet Count 105 K/mcL (140-400); Red Blood Count 2.36 M/mcL (4.19-5.50); Red Cell Distribution Width 17.2 % (11.5-14.5); White Blood Count 5.1 K/mcL (4.3-11.1)
[2020-01-29 04:23] LABS: BUN/Creatinine Ratio 11 (6-26); Blood Urea Nitrogen 14 mg/dL (8-23); Calcium 7.5 mg/dL (8.6-10.3); Carbon Dioxide 23 mEq/L (23-29); Chloride 104 mEq/L (98-107); Glucose 84 mg/dL (70-105); Osmolality,Calculated 272 (280-300); Potassium 3.7 mEq/L (3.5-5.1); Sodium 131 mEq/L (136-145); eGFR For African Americans > 60 (> 60); eGFR For Non-African Americans 58 (> 60)
[2020-01-29] MEDS: Folic Acid 1 MG TABLET PO SCH (09:53)
[2020-01-29] MEDS: Doxycycline 100 MG CAPSULE PO SCH ×2 (09:53→20:52)
[2020-01-29] MEDS: Furosemide 20 MG TABLET PO SCH (09:53)
[2020-01-29] MEDS: Lactulose Oral Soln 20 GM/30 ML UDC PO SCH ×2 (09:53→20:52)
[2020-01-29] MEDS: Thiamine (B-1) 100 MG TABLET PO SCH (09:53)
[2020-01-29] MEDS: Amoxicillin/Clavulanate 400 MG/5 ML UDC PO SCH (18:52)
[2020-01-29] MEDS: Mirtazapine 15 MG TABLET PO SCH (20:52)
[2020-01-30 05:33] LABS: INR 1.9; Prothrombin Time 21.4 Seconds (9.4-12.1)
[2020-01-30 05:36] LABS: Activated Partial Thrombo Time 49.3 Seconds (26.0-36.0)
[2020-01-30 09:26] LABS: Basophils % 0.5 %; Eosinophils # 0.2 K/mcL (0.0-0.6); Eosinophils % 4.4 %; Hematocrit 25.6 % (37.5-50.1); Hemoglobin 8.2 g/dL (12.9-16.9); Immature Granulocytes % 0.3 % (0-4); Lymphocytes # 0.9 K/mcL (0.6-4.6); Lymphocytes % 24.1 %; Mean Corpuscular Hemoglobin 32.2 pg (28.0-33.3); Mean Corpuscular Volume 100.4 fL (83.0-100.0); Mean Platelet Volume 8.8 fL (9.4-12.4); Monocytes # 0.6 K/mcL (0.0-1.3); Monocytes % 14.9 %; Neutrophils # 2.2 K/mcL (1.6-8.9); Platelet Count 114 K/mcL (140-400); Red Blood Count 2.55 M/mcL (4.19-5.50); Red Cell Distribution Width 17.2 % (11.5-14.5); Segmented Neutrophils % 55.8 %; White Blood Count 3.9 K/mcL (4.3-11.1)
[2020-01-30 09:41] LABS: Alanine Aminotransferase 9 Units/L (7-52); Albumin 1.7 g/dL (3.5-5.7); Albumin/Globulin Ratio 0.4 (1.1-2.2); Alkaline Phosphatase 89 Units/L (34-104); Aspartate Amino Transferase 29 Units/L (13-39); BUN/Creatinine Ratio 11 (6-26); Bilirubin,Total 1.9 mg/dL (0.3-1.0); Blood Urea Nitrogen 15 mg/dL (8-23); Carbon Dioxide 24 mEq/L (23-29); Chloride 103 mEq/L (98-107); Globulin 4.3 g/dL (2.4-3.5); Glucose 94 mg/dL (70-105); Magnesium 1.5 mg/dL (1.6-2.6); Osmolality,Calculated 275 (280-300); Phosphorous 3.3 mg/dL (2.7-4.5); Potassium 3.6 mEq/L (3.5-5.1); Sodium 132 mEq/L (136-145); eGFR For African Americans > 60 (> 60); eGFR For Non-African Americans 50 (> 60)
[2020-01-30] MEDS: Folic Acid 1 MG TABLET PO SCH (11:31)
[2020-01-30] MEDS: Lactulose Oral Soln 20 GM/30 ML UDC PO SCH ×2 (11:31→20:05)
[2020-01-30] MEDS: Doxycycline 100 MG CAPSULE PO SCH ×2 (11:31→20:05)
[2020-01-30] MEDS: Thiamine (B-1) 100 MG TABLET PO SCH (11:31)
[2020-01-30] MEDS: Furosemide 20 MG TABLET PO SCH (11:31)
[2020-01-30] MEDS: Amoxicillin/Clavulanate 400 MG/5 ML UDC PO SCH ×3 (12:02→17:44)
[2020-01-30] MEDS: Nystatin POWDER 30 GM BOTTLE TP SCH ×3 (17:44→20:15)
[2020-01-30] MEDS: Mirtazapine 15 MG TABLET PO SCH (20:05)
[2020-01-31] MEDS ORDERED: Furosemide 20 MG/2 ML VIAL IVP ONE (03:15)
[2020-01-31 04:20] LABS: Bilirubin,Urine Negative (Negative); Blood,Urine Negative (Negative); Clarity,Urine Clear (Clear); Color,Urine Yellow (Yellow); Glucose,Urine (UA) Normal (Normal); Ketones,Urine Negative (Negative); Leukocyte Esterase,Urine Moderate (Negative); Nitrite,Urine Negative (Negative); PH,Urine 5.5 pH Units (5.0-8.0); Protein,Urine Negative (Neg-Trace); Urobilinogen,Urine Normal (Normal)
[2020-01-31 04:26] LABS: Bacteria,Urine Few per hpf (None-Few); Hyaline Casts,Urine Many per lpf (None Seen); Mucus,Urine Few per lpf (None-Few); Squamous Epithelial Cell,Urine Few per hpf (None-Few); WBC,Urine 50-100 per hpf (0-3)
[2020-01-31 04:30] LABS: Protein/Creatinine Ratio,Urine 0.2 mg/mg (0.00-0.20)
[2020-01-31 07:10] LABS: BUN/Creatinine Ratio 11 (6-26); Blood Urea Nitrogen 16 mg/dL (8-23); Calcium 7.8 mg/dL (8.6-10.3); Carbon Dioxide 20 mEq/L (23-29); Chloride 101 mEq/L (98-107); Glucose 115 mg/dL (70-105); Osmolality,Calculated 268 (280-300); Potassium 3.7 mEq/L (3.5-5.1); Sodium 128 mEq/L (136-145); eGFR For African Americans > 60 (> 60); eGFR For Non-African Americans 51 (> 60)
[2020-01-31] MEDS: Doxycycline 100 MG CAPSULE PO SCH (09:27)
[2020-01-31] MEDS: Thiamine (B-1) 100 MG TABLET PO SCH (09:27)
[2020-01-31] MEDS: Furosemide 20 MG TABLET PO SCH (09:27)
[2020-01-31] MEDS: Folic Acid 1 MG TABLET PO SCH (09:28)
[2020-01-31] MEDS: Lactulose Oral Soln 20 GM/30 ML UDC PO SCH (09:28)
[2020-01-31] MEDS: Nystatin POWDER 30 GM BOTTLE TP SCH (10:16)
[2020-01-31 10:22] LABS: Basophils % 0.6 %; Eosinophils % 2.7 %; Hemoglobin 7.7 g/dL (12.9-16.9); Immature Granulocytes % 0.3 % (0-4)
[2020-01-31 10:24] LABS: Eosinophils # 0.1 K/mcL (0.0-0.6); Hematocrit 24.2 % (37.5-50.1); Immature Platelets 1.7 % (1.1-6.1); Lymphocytes # 0.7 K/mcL (0.6-4.6); Lymphocytes % 21.7 %; Mean Corpuscular HGB Conc 31.8 g/dL (31.6-35.5); Mean Corpuscular Hemoglobin 32.2 pg (28.0-33.3); Mean Corpuscular Volume 101.3 fL (83.0-100.0); Mean Platelet Volume 9.3 fL (9.4-12.4); Monocytes # 0.5 K/mcL (0.0-1.3); Monocytes % 15.2 %; Red Blood Count 2.39 M/mcL (4.19-5.50); Segmented Neutrophils % 59.5 %; White Blood Count 3.4 K/mcL (4.3-11.1)
[2020-01-31 10:41] LABS: Platelet Count 96 K/mcL (140-400); Platelet Estimate Decreased (Normal); Reactive Lymphocytes Present (Not Present)
[2020-01-31 14:08] VITALS: BP 121/74
[2020-01-31] MEDS: Amoxicillin/Clavulanate 400 MG/5 ML UDC PO SCH (15:12)
== END 2020-01-31 15:50 | DRG 871 ==
LOC: EMEROOARM 11:00 → 3ANU 11:00 → SUATTDRO 16:46 → 3ANU 17:51 → SUATTDRO 01-17 15:13
PROVIDERS: ADMIT Internal Medicine; ATTEND Internal Medicine
PROC: IRDRAIN (2020-01-15 12:00)

== ENCOUNTER 2020-02-25 03:10 | Inpatient (IN) ==
[2020-02-25 05:05] LABS: Basophils % 0.6 %; Eosinophils # 0.1 K/mcL (0.0-0.6); Eosinophils % 4.2 %; Hemoglobin 8.3 g/dL (12.9-16.9); INR 1.8; Immature Granulocytes % 0.6 % (0-4); Immature Platelets 1.8 % (1.1-6.1); Lymphocytes # 0.9 K/mcL (0.6-4.6); Lymphocytes % 27.2 %; Mean Corpuscular HGB Conc 34.6 g/dL (31.6-35.5); Mean Corpuscular Hemoglobin 31.3 pg (28.0-33.3); Mean Corpuscular Volume 90.6 fL (83.0-100.0); Mean Platelet Volume 8.9 fL (9.4-12.4); Monocytes # 0.4 K/mcL (0.0-1.3); Monocytes % 14.1 %; Neutrophils # 1.7 K/mcL (1.6-8.9); Platelet Count 105 K/mcL (140-400); Red Blood Count 2.65 M/mcL (4.19-5.50); Red Cell Distribution Width 14.6 % (11.5-14.5); Segmented Neutrophils % 53.3 %; White Blood Count 3.1 K/mcL (4.3-11.1)
[2020-02-25] MEDS ORDERED: Piperacillin/Tazobactam 3.375 GM in 0.9 % Sodium Chloride Mini Bag 100 ML IVPB ONE (05:14)
[2020-02-25 05:28] LABS: Alanine Aminotransferase 18 Units/L (7-52); Albumin 1.9 g/dL (3.5-5.7); Albumin/Globulin Ratio 0.4 (1.1-2.2); Alkaline Phosphatase 125 Units/L (34-104); Amylase < 10 Units/L (29-103); Aspartate Amino Transferase 34 Units/L (13-39); BUN/Creatinine Ratio 11 (6-26); Bilirubin,Direct 0.9 mg/dL (0.0-0.2); Bilirubin,Indirect 1.3 mg/dL (0.0-1.0); Bilirubin,Total 2.2 mg/dL (0.3-1.0); Blood Urea Nitrogen 9 mg/dL (8-23); Calcium 7.8 mg/dL (8.6-10.3); Carbon Dioxide 28 mEq/L (23-29); Chloride 82 mEq/L (98-107); Globulin 4.9 g/dL (2.4-3.5); Glucose 105 mg/dL (70-105); Lipase 19 Units/L (11-82); Osmolality,Calculated 251 (280-300); Potassium 2.5 mEq/L (3.5-5.1); Sodium 121 mEq/L (136-145); Total Protein 6.8 g/dL (6.4-8.9); Troponin I < 0.03 ng/mL (< 0.04); eGFR For African Americans > 60 (> 60); eGFR For Non-African Americans > 60 (> 60)
[2020-02-25 05:47] LABS: Adenovirus Not Detected (Not Detect); Bordetella Pertussis Not Detected (Not Detect); Chlamydophila pneumoniae Not Detected (Not Detect); Coronavirus 229E Not Detected (Not Detect); Coronavirus HKU1 Not Detected (Not Detect); Coronavirus NL63 Not Detected (Not Detect); Coronavirus OC43 Not Detected (Not Detect); Human Metapneumovirus Not Detected (Not Detect); Human Rhinovirus/Enterovirus Not Detected (Not Detect); Influenza A Subtype 2009 H1 Not Detected (Not Detect); Influenza B Not Detected (Not Detect); Mycoplasma pneumoniae Not Detected (Not Detect); Parainfluenza Virus 1 Not Detected (Not Detect); Parainfluenza Virus 2 Not Detected (Not Detect); Parainfluenza Virus 3 Not Detected (Not Detect); Parainfluenza Virus 4 Not Detected (Not Detect); Respiratory Syncytial Virus Not Detected (Not Detect); SARS-CoV-2 Not Detected (Not Detect)
[2020-02-25 05:52] LABS: Bilirubin,Urine Negative (Negative); Blood,Urine Negative (Negative); Clarity,Urine Clear (Clear); Color,Urine Yellow (Yellow); Glucose,Urine (UA) Normal (Normal); Ketones,Urine Negative (Negative); Leukocyte Esterase,Urine Negative (Negative); Nitrite,Urine Negative (Negative); Protein,Urine Negative (Neg-Trace); Urobilinogen,Urine Normal (Normal)
[2020-02-25] MEDS ORDERED: *HR* Promethazine 25 MG/ML VIAL IVP PRN (07:12)
[2020-02-25] MEDS ORDERED: 0.9 % Sodium Chloride 1,000 ML IVC ONE (07:20)
[2020-02-25] MEDS ORDERED: Albumin 25% 25gram/100mL 25 GM/100 ML IV.SOLN IVPB SCH (08:00)
[2020-02-25] MEDS ORDERED: Isovue-370 500 ML BOTTLE IVP ONE (08:01)
[2020-02-25 09:30] LABS: Magnesium 1.2 mg/dL (1.6-2.6); Phosphorous 3.2 mg/dL (2.7-4.5)
[2020-02-25] MEDS: cefTRIAXone 2,000 MG in Water for inj. (sterile) 20 ML IVP SCH (10:26)
[2020-02-25] MEDS: Lactulose Oral Soln 20 GM/30 ML UDC PO SCH ×4 (10:27→20:04)
[2020-02-25 12:26] LABS: Lactate Dehydrogenase 196 Units/L (140-271); Total Protein 6.2 g/dL (6.4-8.9)
[2020-02-25 15:07] LABS: BUN/Creatinine Ratio 11 (6-26); Blood Urea Nitrogen 8 mg/dL (8-23); Calcium 7.6 mg/dL (8.6-10.3); Carbon Dioxide 25 mEq/L (23-29); Chloride 85 mEq/L (98-107); Glucose 96 mg/dL (70-105); Osmolality,Calculated 246 (280-300); Potassium 3.2 mEq/L (3.5-5.1); Sodium 119 mEq/L (136-145); eGFR For African Americans > 60 (> 60); eGFR For Non-African Americans > 60 (> 60)
[2020-02-25] MEDS: Albumin 25% 25gram/100mL 25 GM/100 ML IV.SOLN IVPB SCH (16:45)
[2020-02-25 17:26] LABS: RBC,Pleural Fluid < 2000 RBC/mcL
[2020-02-25 17:27] LABS: Appearance of Pleural Fl Clear (Clear)
[2020-02-25 18:05] LABS: LDH,Pleural Fluid 35 Units/L (No Ref Range); Total Protein,Pleural Fluid < 3.0 g/dL
[2020-02-25 18:45] LABS: Basophils,Pleural Fluid 0 %; Eosinophils,Pleural Fluid 0 %
[2020-02-25 18:56] LABS: RBC,Peritoneal Fluid < 2000 RBC/mcL
[2020-02-25 19:33] LABS: Basophils,Peritoneal Fluid 0 %; Eosinophils,Peritoneal Fluid 0 %
[2020-02-25 19:45] LABS: Appearance of Peritoneal Fl HAZY (Clear)
[2020-02-25 20:52] LABS: BUN/Creatinine Ratio 12 (6-26); Blood Urea Nitrogen 9 mg/dL (8-23); Carbon Dioxide 28 mEq/L (23-29); Chloride 87 mEq/L (98-107); Glucose 124 mg/dL (70-105); Magnesium 1.9 mg/dL (1.6-2.6); Osmolality,Calculated 254 (280-300); Potassium 3.6 mEq/L (3.5-5.1); Sodium 122 mEq/L (136-145); eGFR For African Americans > 60 (> 60); eGFR For Non-African Americans > 60 (> 60)
[2020-02-26] MEDS: Albumin 25% 25gram/100mL 25 GM/100 ML IV.SOLN IVPB SCH (00:03)
[2020-02-26 05:31] LABS: Hemoglobin 7.1 g/dL (12.9-16.9)
[2020-02-26 05:32] LABS: Hematocrit 20.8 % (37.5-50.1); Mean Corpuscular HGB Conc 34.1 g/dL (31.6-35.5); Mean Corpuscular Hemoglobin 31.3 pg (28.0-33.3); Mean Corpuscular Volume 91.6 fL (83.0-100.0); Mean Platelet Volume 9.6 fL (9.4-12.4); Red Blood Count 2.27 M/mcL (4.19-5.50); Red Cell Distribution Width 14.8 % (11.5-14.5); White Blood Count 2.8 K/mcL (4.3-11.1)
[2020-02-26 05:37] LABS: INR 2.2; Prothrombin Time 24.7 Seconds (9.4-12.1)
[2020-02-26 05:52] LABS: Alanine Aminotransferase 12 Units/L (7-52); Albumin 2.6 g/dL (3.5-5.7); Albumin/Globulin Ratio 0.8 (1.1-2.2); Alkaline Phosphatase 88 Units/L (34-104); Aspartate Amino Transferase 27 Units/L (13-39); BUN/Creatinine Ratio 13 (6-26); Bilirubin,Total 2.2 mg/dL (0.3-1.0); Blood Urea Nitrogen 9 mg/dL (8-23); Calcium 8.3 mg/dL (8.6-10.3); Carbon Dioxide 28 mEq/L (23-29); Chloride 89 mEq/L (98-107); Globulin 3.4 g/dL (2.4-3.5); Glucose 70 mg/dL (70-105); Magnesium 1.7 mg/dL (1.6-2.6); Osmolality,Calculated 253 (280-300); Sodium 123 mEq/L (136-145); eGFR For African Americans > 60 (> 60); eGFR For Non-African Americans > 60 (> 60)
[2020-02-26 08:49] VITALS: BP 88/59
[2020-02-26] MEDS ORDERED: Furosemide 20 MG/2 ML VIAL IVP SCH (09:00)
[2020-02-26] MEDS: cefTRIAXone 2,000 MG in Water for inj. (sterile) 20 ML IVP SCH (10:30)
[2020-02-26] MEDS: Lactulose Oral Soln 20 GM/30 ML UDC PO SCH (10:30)
[2020-02-26] MEDS ORDERED: Albumin 25% 25gram/100mL 25 GM/100 ML IV.SOLN IVPB SCH (11:00)
== END 2020-02-26 14:26 | disposition home health service (06) | DRG 433 ==
LOC: EMEROOARM 03:10 → CDU 03:10 → 2ANU 18:28 → SUATTDRO 23:10
PROVIDERS: ADMIT Student in an Organized Health Care Education/Training Program; ATTEND Internal Medicine

== ENCOUNTER 2020-05-11 11:12 | Observation (INO) ==
[2020-05-11] MEDS ORDERED: 0.9 % Sodium Chloride 1,000 ML IVC ONE ×2 (11:39→13:26)
[2020-05-11] MEDS ORDERED: Isovue-370 500 ML BOTTLE IVP ONE (11:44)
[2020-05-11 12:03] LABS: Hematocrit 27.4 % (37.5-50.1); Mean Corpuscular HGB Conc 32.8 g/dL (31.6-35.5); Mean Corpuscular Volume 97.5 fL (83.0-100.0); Mean Platelet Volume 8.1 fL (9.4-12.4); Platelet Count 107 K/mcL (140-400); Red Blood Count 2.81 M/mcL (4.19-5.50); Red Cell Distribution Width 17.6 % (11.5-14.5); Segmented Neutrophils % 54.1 %; White Blood Count 2.7 K/mcL (4.3-11.1)
[2020-05-11 12:04] LABS: Basophils % 1.5 %; Eosinophils # 0.1 K/mcL (0.0-0.6); Eosinophils % 4.4 %; Lymphocytes # 0.7 K/mcL (0.6-4.6); Lymphocytes % 25.6 %; Monocytes # 0.4 K/mcL (0.0-1.3); Monocytes % 14.4 %; Neutrophils # 1.5 K/mcL (1.6-8.9)
[2020-05-11 12:25] LABS: Alanine Aminotransferase 12 Units/L (7-52); Albumin/Globulin Ratio 0.4 (1.1-2.2); Alkaline Phosphatase 105 Units/L (34-104); Aspartate Amino Transferase 26 Units/L (13-39); BUN/Creatinine Ratio 10 (6-26); Bilirubin,Direct 0.8 mg/dL (0.0-0.2); Bilirubin,Indirect 2.1 mg/dL (0.0-1.0); Bilirubin,Total 2.9 mg/dL (0.3-1.0); Blood Urea Nitrogen 6 mg/dL (8-23); Carbon Dioxide 27 mEq/L (23-29); Chloride 96 mEq/L (98-107); Globulin 5.2 g/dL (2.4-3.5); Glucose 91 mg/dL (70-105); Osmolality,Calculated 263 (280-300); Potassium 3.7 mEq/L (3.5-5.1); Sodium 128 mEq/L (136-145); Total Protein 7.2 g/dL (6.4-8.9); eGFR For African Americans > 60 (> 60); eGFR For Non-African Americans > 60 (> 60)
[2020-05-11] MEDS ORDERED: Piperacillin/Tazobactam 3.375 GM in 0.9 % Sodium Chloride Mini Bag 100 ML IVPB ONE (14:00)
[2020-05-11 14:50] LABS: INR 1.9; Prothrombin Time 21.2 Seconds (9.4-12.1)
[2020-05-11 14:51] LABS: Amorphous Sediment,Urine Few per hpf (None-Few); Bilirubin,Urine Negative (Negative); Blood,Urine Negative (Negative); Clarity,Urine Clear (Clear); Color,Urine Light-Yellow (Yellow); Glucose,Urine (UA) Normal (Normal); Ketones,Urine Negative (Negative); Leukocyte Esterase,Urine Large (Negative); Nitrite,Urine Positive (Negative); PH,Urine 6.5 pH Units (5.0-8.0); Protein,Urine Negative (Neg-Trace); RBC,Urine 0-3 per hpf (0-3); Urobilinogen,Urine Normal (Normal)
[2020-05-11] MEDS ORDERED: Naloxone 0.4 MG/ML INJ IVP PRN (18:30)
[2020-05-11] MEDS ORDERED: Ondansetron ODT 4 MG TAB.RAPDIS SL PRN (18:35)
[2020-05-11] MEDS: Lactulose Oral Soln 20 GM/30 ML UDC PO SCH (19:25)
[2020-05-12 04:24] LABS: Basophils % 1.1 %; Eosinophils # 0.2 K/mcL (0.0-0.6); Eosinophils % 6.5 %; Hematocrit 24.4 % (37.5-50.1); INR 2.1; Immature Granulocytes % 0.4 % (0-4); Lymphocytes # 0.9 K/mcL (0.6-4.6); Lymphocytes % 30.9 %; Mean Corpuscular HGB Conc 32.8 g/dL (31.6-35.5); Mean Corpuscular Hemoglobin 31.5 pg (28.0-33.3); Mean Corpuscular Volume 96.1 fL (83.0-100.0); Mean Platelet Volume 8.3 fL (9.4-12.4); Monocytes # 0.3 K/mcL (0.0-1.3); Monocytes % 10.4 %; Neutrophils # 1.4 K/mcL (1.6-8.9); Platelet Count 109 K/mcL (140-400); Prothrombin Time 23.5 Seconds (9.4-12.1); Red Blood Count 2.54 M/mcL (4.19-5.50); Red Cell Distribution Width 17.3 % (11.5-14.5); Segmented Neutrophils % 50.7 %; White Blood Count 2.8 K/mcL (4.3-11.1)
[2020-05-12 04:42] LABS: Alanine Aminotransferase 11 Units/L (7-52); Albumin 1.7 g/dL (3.5-5.7); Albumin/Globulin Ratio 0.4 (1.1-2.2); Alkaline Phosphatase 94 Units/L (34-104); Aspartate Amino Transferase 23 Units/L (13-39); BUN/Creatinine Ratio 13 (6-26); Blood Urea Nitrogen 6 mg/dL (8-23); Calcium 7.9 mg/dL (8.6-10.3); Carbon Dioxide 27 mEq/L (23-29); Chloride 99 mEq/L (98-107); Chol/HDL Ratio 5.4 (0-4.9); Cholesterol 49 mg/dL (< 200); Globulin 4.4 g/dL (2.4-3.5); Glucose 80 mg/dL (70-105); HDL Cholesterol 9 mg/dL (40-59); LDL Cholesterol,Calculated 33 mg/dL (< 100); Magnesium 1.2 mg/dL (1.6-2.6); Osmolality,Calculated 265 (280-300); Phosphorous 2.9 mg/dL (2.7-4.5); Potassium 3.8 mEq/L (3.5-5.1); Sodium 129 mEq/L (136-145); Total Protein 6.1 g/dL (6.4-8.9); Triglycerides 33 mg/dL (< 150); eGFR For African Americans > 60 (> 60); eGFR For Non-African Americans > 60 (> 60)
[2020-05-12] MEDS: Lactulose Oral Soln 20 GM/30 ML UDC PO SCH ×2 (09:00→20:47)
[2020-05-12] MEDS ORDERED: *HR* Phytonadione 10 MG/ML AMPUL SQ ONE (09:35)
[2020-05-12] MEDS: Magnesium Oxide 400 MG TABLET PO SCH ×2 (11:06→20:47)
[2020-05-12] MEDS ORDERED: cefTRIAXone 1,000 MG in Water for inj. (sterile) 10 ML IVP SCH (15:00)
[2020-05-12 16:25] LABS: Appearance of Pleural Fl Clear (Clear)
[2020-05-12 16:30] LABS: Glucose,Pleural Fluid 103 mg/dL (No Ref Range); LDH,Pleural Fluid 38 Units/L (No Ref Range); RBC,Pleural Fluid < 2000 RBC/mcL; Total Protein,Pleural Fluid < 2.0 g/dL
[2020-05-12 16:52] LABS: INR 1.8; Prothrombin Time 20.5 Seconds (9.4-12.1)
[2020-05-12] MEDS ORDERED: Albumin 25% 25gram/100mL 25 GM/100 ML IV.SOLN IVPB ONE (17:41)
[2020-05-12 17:49] LABS: Basophils,Pleural Fluid 0 %; Monocytes,Pleural Fluid 0 %
[2020-05-12] MEDS ORDERED: Mirtazapine 15 MG TABLET PO SCH (21:00)
[2020-05-13 03:44] LABS: Eosinophils # 0.2 K/mcL (0.0-0.6); Eosinophils % 5.1 %; Hematocrit 25.1 % (37.5-50.1); Hemoglobin 8.2 g/dL (12.9-16.9); Immature Granulocytes % 0.3 % (0-4); Lymphocytes # 0.9 K/mcL (0.6-4.6); Lymphocytes % 30.4 %; Mean Corpuscular HGB Conc 32.7 g/dL (31.6-35.5); Mean Corpuscular Hemoglobin 31.4 pg (28.0-33.3); Mean Corpuscular Volume 96.2 fL (83.0-100.0); Mean Platelet Volume 8.8 fL (9.4-12.4); Monocytes % 11.5 %; Platelet Count 114 K/mcL (140-400); Red Blood Count 2.61 M/mcL (4.19-5.50); Red Cell Distribution Width 17.5 % (11.5-14.5); Segmented Neutrophils % 51.7 %
[2020-05-13 03:47] LABS: Monocytes # 0.4 K/mcL (0.0-1.3); Neutrophils # 1.6 K/mcL (1.6-8.9)
[2020-05-13 03:53] LABS: INR 1.8; Prothrombin Time 20.6 Seconds (9.4-12.1)
[2020-05-13 04:07] LABS: Alanine Aminotransferase 11 Units/L (7-52); Albumin 2.2 g/dL (3.5-5.7); Albumin/Globulin Ratio 0.5 (1.1-2.2); Alkaline Phosphatase 90 Units/L (34-104); Aspartate Amino Transferase 25 Units/L (13-39); BUN/Creatinine Ratio 13 (6-26); Bilirubin,Total 2.2 mg/dL (0.3-1.0); Blood Urea Nitrogen 7 mg/dL (8-23); Calcium 8.1 mg/dL (8.6-10.3); Carbon Dioxide 27 mEq/L (23-29); Chloride 97 mEq/L (98-107); Globulin 4.4 g/dL (2.4-3.5); Glucose 103 mg/dL (70-105); Magnesium 1.7 mg/dL (1.6-2.6); Osmolality,Calculated 268 (280-300); Phosphorous 2.4 mg/dL (2.7-4.5); Potassium 3.3 mEq/L (3.5-5.1); Sodium 130 mEq/L (136-145); Total Protein 6.6 g/dL (6.4-8.9); eGFR For African Americans > 60 (> 60); eGFR For Non-African Americans > 60 (> 60)
[2020-05-13 04:08] LABS: Anisocytosis 1+ (Not Present); Burr Cells 1+ (Not Present); Platelet Estimate Slight Decrease (Normal); Poikilocytosis 1+ (Not Present)
[2020-05-13 04:09] LABS: Microcytosis Present (Not Present); Reactive Lymphocytes Present (Not Present)
[2020-05-13] MEDS ORDERED: Albumin 25% 25gram/100mL 25 GM/100 ML IV.SOLN IVPB ONE (07:21)
[2020-05-13 08:15] VITALS: BP 116/71
[2020-05-13] MEDS: Lactulose Oral Soln 20 GM/30 ML UDC PO SCH (08:15)
[2020-05-13] MEDS: Magnesium Oxide 400 MG TABLET PO SCH (08:15)
[2020-05-13] MEDS ORDERED: GuaiFENesin/Dextromethorphan TABLET PO ONE (08:22)
[2020-05-16 12:37] LABS: Fluid Source for Albumin PLEURAL FLUID
== END 2020-05-13 11:50 | disposition home or self-care (01) ==
LOC: 2ANU 11:12 → EMEROOARM 11:12 → SUATTDRO 16:08 → 2ANU 17:01
PROVIDERS: ADMIT Student in an Organized Health Care Education/Training Program; ATTEND Internal Medicine